=== PATIENT | female | born 1930 | race Caucasian/White ===

== ENCOUNTER 2019-12-12 12:16 | Inpatient (IN) | payer MEDICARE ==
[~2019-12-12] VITALS: Ht 160 cm; Wt 74.4 kg
[2019-12-12] MEDS ORDERED: SINGULAIR10 MG ORAL (12:30)
[2019-12-12] MEDS ORDERED: PRILOSEC OTC20 MG ORAL (12:30)
[2019-12-12] MEDS ORDERED: LEVOTHYROXINE75 MCG ORAL (12:30)
[2019-12-12] MEDS ORDERED: SYMBICORT 16010.2 G1 IH (12:30)
[2019-12-12] MEDS ORDERED: NEURONTIN300 MG ORAL (12:30)
[2019-12-12] MEDS ORDERED: MIRTAZAPINE15 MG ORAL (12:30)
[2019-12-12] MEDS ORDERED: MELATONIN5 M5 ORAL (12:30)
[2019-12-12] MEDS ORDERED: COLACE100 MG ORAL (12:30)
[2019-12-12] MEDS ORDERED: LEXAPRO20 MG ORAL (12:30)
[2019-12-12] MEDS ORDERED: DUONEB 0.5-3(2.53 ML HHN (12:30)
[2019-12-12] MEDS ORDERED: Ipratropium 0.02% Inh Soln 2.5ml UD ONE ×2 (12:37→13:23)
[2019-12-12] MEDS ORDERED: Albuterol ud Inhalation ONE (12:37)
[2019-12-12 12:39] LABS: HEMATOCRIT 36.6 % (37.0-47.0); HEMOGLOBIN 12.1 G/DL (12.0-16.0); MEAN CORPUSCULAR VOLUME 96 FL (80-99); PLATELET COUNT 330 K/UL (150-450); RED CELL DISTRIBUTION WIDTH 11.9 % (11.6-14.8)
[2019-12-12 12:44] LABS: WHITE BLOOD COUNT 32.6 K/UL (4.8-10.8)
[2019-12-12] MEDS ORDERED: Solu-MEDROL 125mg Inj IVP ONE (12:45)
[2019-12-12] MEDS ORDERED: Albuterol ud Inhalation HHN ONE (12:45)
[2019-12-12] MEDS ORDERED: Ipratropium 0.02% Inh Soln 2.5ml UD HHN ONE (12:45)
[2019-12-12 12:48] LABS: ANION GAP 12 mmol/L (5-15); BLOOD UREA NITROGEN 32 mg/dL (7-18); CALCIUM 9.4 MG/DL (8.5-10.1); CARBON DIOXIDE 21 MMOL/L (21-32); CHLORIDE 106 MMOL/L (98-107); CREATININE 1.5 MG/DL (0.55-1.30); POTASSIUM 5.2 MMOL/L (3.5-5.1); SODIUM 139 MMOL/L (136-145)
[2019-12-12 13:00] LABS: ALANINE AMINOTRANSFERASE 41 U/L (12-78); ALBUMIN 3.3 G/DL (3.4-5.0); ALBUMIN/GLOBULIN RATIO 0.8 (1.0-2.7); ALKALINE PHOSPHATASE 135 U/L (46-116); ASPARTATE AMINO TRANSFERASE 20 U/L (15-37); BILIRUBIN,TOTAL 0.7 MG/DL (0.2-1.0); CKMB 1.6 NG/ML (0.0-3.6); CREATINE KINASE 80 U/L (26-308)
[2019-12-12] MEDS ORDERED: Levalbuterol Inh UD 1.25mg/0.5ml HHN ONE (13:15)
--- NOTE | 2019-12-12 13:18 | Emergency Room Report ---
History of Present Illness General Chief Complaint: Dyspnea/Respdistress Source: Patient (Carlos Lopez DO) Present Illness HPI Patient presents with complaints of shortness of breath Reports that she has an asthma exacerbation patient reports that she has had several of these over the past 1 year Denies any fevers denies any vomiting or diarrhea she has had increased cough Denies any chest pain denies any focal weakness Denies any recent travel denies any change in medications Patient has had some URI symptoms with mild cough and runny nose (Carlos Lopez DO) Allergies: Coded Allergies: ASPIRIN (Verified Allergy, Intermediate, 12/12/19) CODEINE (Verified Allergy, Intermediate, 12/12/19) EPINEPHRINE (Verified Allergy, Intermediate, 12/12/19) PENICILLINS (Verified Allergy, Unknown, 12/12/19) SULFA (SULFONAMIDE ANTIBIOTICS) (Verified Allergy, Unknown, 12/12/19) Patient History Past Medical History: see triage record Last Menstrual Period: na Reviewed Nursing Documentation: PMH: Agreed; PSxH: Agreed (Carlos Lopez DO) Review of Systems All Other Systems: negative except mentioned in HPI (PedroCarlos van DO) Physical Exam Vital Signs Date Time Temp Pulse Resp B/P (MAP) Pulse Ox O2 Delivery O2 Flow Rate FiO2 12/12/19 12:11 97.5 91 28 112/52 (72) 95 Simple Mask 10.0 12/12/19 12:41 28 Sp02 EP Interpretation: reviewed, normal General Appearance: mild distress - Appears short of breath and tachypneic Head: normocephalic, atraumatic Eyes: bilateral eye PERRL, bilateral eye EOMI ENT: hearing grossly normal, EOM grossly intact, dry mucus membranes Neck: supple Respiratory: other - Patient appears tachypneic, diffuse wheezing and crackles bilaterally, no obvious initial retractions however patient does appear in mild distress Cardiovascular #1: tachycardia Gastrointestinal: non tender, soft Genitourinary: no CVA tenderness Musculoskeletal: normal inspection Neurologic: alert, oriented x3 Skin: no rash Lymphatic: no adenopathy (Carlos Lopez DO) Procedures Critical Care Time Critical Care Time 50 minutes for initial critical presentation, respiratory distress concerning for respiratory failure not including any procedural time (Carlos Lopez DO) Medical Decision Making Diagnostic Impression: Primary Impression: Respiratory distress Additional Impressions: Dyspnea Qualified Codes: R06.03 - Acute respiratory distress Asthma exacerbation Qualified Codes: J45.51 - Severe persistent asthma with (acute) exacerbation Leukocytosis Qualified Codes: D72.828 - Other elevated white blood cell count ER Course Patient is a fairly complex patient with multiple differential to consideration including but not limited to cardiac cardiopulmonary and vascular emergencies Patient's tachypneic with wheezing bilaterally Repeat breathing treatments are initiated patient also started on steroids and Magnesium sulfate given the severity of presentation Patient's white blood cell count is significantly elevated patient is likely on chronic steroids contributing to this however There is increased concern regarding infectious process Patient has further antibiotics and hydration initiated x-ray shows nonspecific markings bilaterally Tortuous aorta as well And admitted for higher level of care admission Labs Test 12/12/19 12:25 12/12/19 13:04 12/12/19 13:15 White Blood Count 32.6 K/UL (4.8-10.8) Red Blood Count 3.80 M/UL (4.20-5.40) Hemoglobin 12.1 G/DL (12.0-16.0) Hematocrit 36.6 % (37.0-47.0) Mean Corpuscular Volume 96 FL (80-99) Mean Corpuscular Hemoglobin 31.8 PG (27.0-31.0) Mean Corpuscular Hemoglobin Concent 33.0 G/DL (32.0-36.0) Red Cell Distribution Width 11.9 % (11.6-14.8) Platelet Count 330 K/UL (150-450) Mean Platelet Volume 6.5 FL (6.5-10.1) Neutrophils (%) (Auto) % (45.0-75.0) Lymphocytes (%) (Auto) % (20.0-45.0) Monocytes (%) (Auto) % (1.0-10.0) Eosinophils (%) (Auto) % (0.0-3.0) Basophils (%) (Auto) % (0.0-2.0) Sodium Level 139 MMOL/L (136-145) Potassium Level 5.2 MMOL/L (3.5-5.1) Chloride Level 106 MMOL/L (98-107) Carbon Dioxide Level 21 MMOL/L (21-32) Anion Gap 12 mmol/L (5-15) Blood Urea Nitrogen 32 mg/dL (7-18) Creatinine 1.5 MG/DL (0.55-1.30) Estimat Glomerular Filtration Rate mL/min (>60) Glucose Level 137 MG/DL (74-106) Lactic Acid Level 1.80 mmol/L (0.4-2.0) Calcium Level 9.4 MG/DL (8.5-10.1) Total Bilirubin 0.7 MG/DL (0.2-1.0) Aspartate Amino Transf (AST/SGOT) 20 U/L (15-37) Alanine Aminotransferase (ALT/SGPT) 41 U/L (12-78) Alkaline Phosphatase 135 U/L (46-116) Total Creatine Kinase 80 U/L (26-308) Creatine Kinase MB 1.6 NG/ML (0.0-3.6) Creatine Kinase MB Relative Index 2.0 Troponin I 0.000 ng/mL (0.000-0.056) Pro-B-Type Natriuretic Peptide 660 pg/mL (0-125) Total Protein 7.2 G/DL (6.4-8.2) Albumin 3.3 G/DL (3.4-5.0) Globulin 3.9 g/dL Albumin/Globulin Ratio 0.8 (1.0-2.7) Lipase 114 U/L (73-393) Arterial Blood pH 7.392 (7.350-7.450) Arterial Blood Partial Pressure CO2 31.8 mmHg (35.0-45.0) Arterial Blood Partial Pressure O2 88.9 mmHg (75.0-100.0) Arterial Blood HCO3 18.9 mmol/L (22.0-26.0) Arterial Blood Oxygen Saturation 96.6 % (95-100) Arterial Blood Base Excess -5.1 (-2-2) Ashvin Test Positive (Carlos Lopez DO) ER Course Please see above note. Patient still with respiratory distress. BiPAP and CO2 monitoring ordered. 1510 - improved O2 and resps on BiPAP. Still wheezing. Albuterol continue. Improved on BiPAP. Transfer to stepdown unit. Discussed with son. (Jomar Wray MD) ER Course Patient with incidental finding Procedure: XRAY Chest 1v Indication: Dyspnea Comparison: None A single view chest radiograph was obtained. Findings: There is an abnormal pleural-based density lateral right upper lung field. Further evaluation with CT is suggested. The heart is enlarged. The aorta is tortuous and ectatic. The interstitium of the lung is mildly prominent. The bones are diffusely osteopenic. IMPRESSION: Nodular appearing infiltrate versus mass in the peripheral right upper lobe. Further evaluation with CT is suggested. At the least, follow-up chest x-ray is recommended. Findings conveyed to the emergency department at 12:40 PM 12/13/2019 Dictated By: Navin Irby MD Electronically Signed By: Navin Irby MD Signed Date/Time 12/13/19 2974 CC: Carlos Lopez DO Made Dr. Davis aware who is taking care of patient under [facility]. (Willy Hedrick MD) EKG Diagnostic Results Rate: tachycardiac Rhythm: other ST Segments: no acute changes (Carlos Lopez DO) Rhythm Strip Diag. Results EP Interpretation: yes Rate: 90 Rhythm: NSR, no PVC's, no ectopy (Carlos Lopez DO) Rhythm: no PVC's, no ectopy, other - ST (Jomar Wray MD) Chest X-Ray Diagnostic Results Chest X-Ray Diagnostic Results : Chest X-Ray Ordered: Yes # of Views/Limited/Complete: 1 View Indication: Shortness of Breath Interpretation: no effusion, no pneumothorax, other - Bilateral patchy markings right middle lobe question lateral wedge bilateral lower lobe atelectasis tortuous aorta Impression: Other - As above Electronically Signed by: Carlos Lopez DO (Carlos Lopez DO) Last Vital Signs Date Time Temp Pulse Resp B/P (MAP) Pulse Ox O2 Delivery O2 Flow Rate FiO2 12/12/19 12:41 101 23 98 Nasal Cannula 2.0 28 98 28 93 12/12/19 12:11 97.5 112/52 (72) Status: improved (Carlos Lopez DO) Last Vital Signs Date Time Temp Pulse Resp B/P (MAP) Pulse Ox O2 Delivery O2 Flow Rate FiO2 12/13/19 00:00 Venturi Mask 6.0 12/13/19 00:00 97.7 95 24 121/61 (81) 95 12/12/19 23:07 35 Status: improved (Jomar Wray MD) Disposition: ADMITTED INPATIENT Condition: Critical Referrals: Sandra Lundberg MD (PCP) Carlos Lopez DO Dec 12, 2019 13:18 Jomar Wray MD Dec 12, 2019 14:55 Willy Hedrick MD Dec 13, 2019 15:02
[2019-12-12 13:38] VITALS: BP 132/72
[2019-12-12 13:54] LABS: APPEARANCE,URINE CLEAR; BILIRUBIN, URINE NEGATIVE (NEGATIVE); GLUCOSE, URINE (UA) NEGATIVE (NEGATIVE); KETONES,URINE NEGATIVE (NEGATIVE); LEUKOCYTE ESTERASE ,URINE NEGATIVE (NEGATIVE); NITRITE,URINE NEGATIVE (NEGATIVE); PH,URINE 5 (4.5-8.0); PROTEIN,URINE NEGATIVE (NEGATIVE); UROBILINOGEN,URINE NORMAL MG/DL (0.0-1.0)
[2019-12-12] MEDS ORDERED: cefTRIAXone 1 GM in NS 55 ML IVPB ONE (14:00)
[2019-12-12] MEDS ORDERED: Azithromycin 500 MG in NS 275 ML IV ONE (14:00)
[2019-12-12 14:10] LABS: COLOR,URINE YELLOW
[2019-12-12] MEDS: Albuterol ud Inhalation HHN SCH ×6 (14:14→17:18)
[2019-12-12] MEDS: Ipratropium 0.02% Inh Soln 2.5ml UD HHN SCH ×2 (14:14→14:15)
[2019-12-12] MEDS ORDERED: Miralax 17gm pkt ORAL PRN (14:30)
[2019-12-12] MEDS ORDERED: Acetaminophen 650 MG SUPP RECTAL PRN ×2 (14:30)
[2019-12-12] MEDS ORDERED: Milk of Magnesia 30ml Ud ORAL PRN (14:30)
[2019-12-12] MEDS ORDERED: Nitroglycerin Subl 0.4mg tab SL PRN (14:30)
[2019-12-12] MEDS: Albuterol/Ipratropium 3ml neb HHN SCH ×3 (15:00→22:42)
[2019-12-12 16:44] VITALS: BP 112/73
[2019-12-12] MEDS ORDERED: D5 1/2NS 1,000 ML IV SCH (17:15)
[2019-12-12] MEDS ORDERED: NORCO 5-325 TA1 EACH ORAL (17:55)
[2019-12-12] MEDS ORDERED: TUMS200 M1 PO (17:55)
[2019-12-12] MEDS ORDERED: GUAIFENESIN400 MG PO (17:55)
[2019-12-12] MEDS: D5 1/2NS 1,000 ML IV SCH (18:54)
[2019-12-12 20:00] VITALS: BP 116/65
[2019-12-12] MEDS: Heparin 5000 units/ml inj SUBQ SCH (20:50)
[2019-12-12] MEDS ORDERED: Docusate 100mg cap ORAL SCH (21:00)
--- NOTE | 2019-12-12 22:52 | History and Physical ---
History of Present Illness General Date patient seen: Dec 12, 2019 Reason for Hospitalization: Dyspnea/Respdistress Present Illness HPI Patient presents with complaints of shortness of breath Reports that she has an asthma exacerbation patient reports that she has had several of these over the past 1 year Denies any fevers denies any vomiting or diarrhea she has had increased cough Denies any chest pain denies any focal weakness Denies any recent travel denies any change in medications Patient has had some URI symptoms with mild cough and runny nose [place] records reviewed; patient's outpatient riveting machine operator is Dr. Puente, who does not round at [facility] and was notified. Patient was at [facility] and has had frequent falls that have exacerbated her Asthma. She is not wheezing on exam but states while in the ED she had significant wheezing that has since improved after breathing treatments. She denies fevers, chills, cp, new allergens, new pets, change in environment. Allergies: Coded Allergies: ASPIRIN (Verified Allergy, Intermediate, 12/12/19) CODEINE (Verified Allergy, Intermediate, 12/12/19) EPINEPHRINE (Verified Allergy, Intermediate, 12/12/19) PENICILLINS (Verified Allergy, Unknown, 12/12/19) SULFA (SULFONAMIDE ANTIBIOTICS) (Verified Allergy, Unknown, 12/12/19) Medication History Scheduled Calcium Carbonate (Tums), 200 MG PO PRN, (Reported) Docusate Sodium* (Colace*), 100 MG ORAL DAILY, (Reported) Escitalopram Oxalate* (Lexapro*), 20 MG ORAL DAILY, (Reported) Gabapentin (Neurontin), 300 MG ORAL BEDTIME, (Reported) Guaifenesin (Guaifenesin), 600 MG PO BID, (Reported) Ipratropium/Albuterol Sulfate (DuoNeb 0.5-3(2.5)mg/3ml), 3 ML HHN Q6HR, ( Reported) Levothyroxine Sodium* (Levothyroxine Sodium*), 75 MCG ORAL DAILY, (Reported) Mirtazapine* (Remeron*), 7.5 MG ORAL BEDTIME, (Reported) Montelukast Sodium* (Singulair*), 10 MG ORAL DAILY, (Reported) Omeprazole Magnesium (Prilosec Otc), 20 MG ORAL DAILY, (Reported) Scheduled PRN Hydrocodone Bit/Acetaminophen 5-325* ([place] 5-325*), 1 TAB ORAL Q4H PRN for For Pain, (Reported) Melatonin (Melatonin), 5 MG ORAL BEDTIME PRN for Insomnia, (Reported) Miscellaneous Medications Budesonide/Formoterol Fumarate (Symbicort 160-4.5 Mcg Inhaler), 1 PUFF IH, ( Reported) Patient History Healthcare decision maker Resuscitation status Full Code Advanced Directive on File Review of Systems All Other Systems: negative except mentioned in HPI Physical Exam General Appearance: WD/WN, alert, mild distress HEENT: atraumatic, anicteric, EOMI Neck: normal alignment, supple Respiratory/Chest: lungs clear, normal breath sounds, accessory muscle use, crackles/rales Cardiovascular/Chest: normal peripheral pulses, normal rate, regular rhythm Abdomen: non tender, soft, no organomegaly Extremities: non-tender, no edema, no cyanosis Neurologic: nutritional health coach II-XII grossly normal, no motor/sensory deficits, oriented x 3 , responsive Musculoskeletal: atrophy Last 24 Hour Vital Signs Date Time Temp Pulse Resp B/P (MAP) Pulse Ox O2 Delivery O2 Flow Rate FiO2 12/12/19 20:00 97.7 105 27 116/65 (82) 95 12/12/19 20:00 106 12/12/19 20:00 35 12/12/19 18:47 105 24 98 Facial 35 100 32 99 Bi-Pap 35 12/12/19 17:15 105 24 99 Facial 35 100 27 100 Bi-Pap 35 12/12/19 16:59 Bi-pap 12/12/19 16:44 96.4 109 27 112/73 (86) 97 12/12/19 16:31 106 24 97 Facial 35 103 28 99 Bi-Pap 35 12/12/19 16:20 97.9 89 24 132/72 98 2.0 35 12/12/19 15:17 112 24 98 Bi-Pap 35 12/12/19 15:05 116 22 98 Facial 35 12/12/19 15:04 116 22 98 12/12/19 14:11 108 24 91 Nasal Cannula 2.0 28 12/12/19 13:38 97.5 111 32 132/72 99 Nasal Cannula 2.0 28 12/12/19 13:25 102 21 99 Nasal Cannula 2.0 28 106 17 94 12/12/19 12:41 101 23 98 Nasal Cannula 2.0 28 98 28 93 12/12/19 12:33 91 28 Nasal Cannula 2.0 12/12/19 12:11 97.5 91 28 112/52 (72) 95 Simple Mask 10.0 Laboratory Tests Test 12/12/19 12:25 12/12/19 13:04 12/12/19 13:15 12/12/19 15:20 White Blood Count 32.6 K/UL (4.8-10.8) *H Red Blood Count 3.80 M/UL (4.20-5.40) L Hemoglobin 12.1 G/DL (12.0-16.0) Hematocrit 36.6 % (37.0-47.0) L Mean Corpuscular Volume 96 FL (80-99) Mean Corpuscular Hemoglobin 31.8 PG (27.0-31.0) H Mean Corpuscular Hemoglobin Concent 33.0 G/DL (32.0-36.0) Red Cell Distribution Width 11.9 % (11.6-14.8) Platelet Count 330 K/UL (150-450) Mean Platelet Volume 6.5 FL (6.5-10.1) Neutrophils (%) (Auto) % (45.0-75.0) Lymphocytes (%) (Auto) % (20.0-45.0) Monocytes (%) (Auto) % (1.0-10.0) Eosinophils (%) (Auto) % (0.0-3.0) Basophils (%) (Auto) % (0.0-2.0) Differential Total Cells Counted 100 Neutrophils % (Manual) 71 % (45-75) Lymphocytes % (Manual) 20 % (20-45) Monocytes % (Manual) 9 % (1-10) Eosinophils % (Manual) 0 % (0-3) Basophils % (Manual) 0 % (0-2) Band Neutrophils 0 % (0-8) Platelet Estimate Adequate Platelet Morphology Normal Sodium Level 139 MMOL/L (136-145) Potassium Level 5.2 MMOL/L (3.5-5.1) H Chloride Level 106 MMOL/L (98-107) Carbon Dioxide Level 21 MMOL/L (21-32) Anion Gap 12 mmol/L (5-15) Blood Urea Nitrogen 32 mg/dL (7-18) H Creatinine 1.5 MG/DL (0.55-1.30) H Estimat Glomerular Filtration Rate mL/min (>60) Glucose Level 137 MG/DL (74-106) H Lactic Acid Level 1.80 mmol/L (0.4-2.0) Calcium Level 9.4 MG/DL (8.5-10.1) Total Bilirubin 0.7 MG/DL (0.2-1.0) Aspartate Amino Transf (AST/SGOT) 20 U/L (15-37) Alanine Aminotransferase (ALT/SGPT) 41 U/L (12-78) Alkaline Phosphatase 135 U/L (46-116) H Total Creatine Kinase 80 U/L (26-308) Creatine Kinase MB 1.6 NG/ML (0.0-3.6) Creatine Kinase MB Relative Index 2.0 Troponin I 0.000 ng/mL (0.000-0.056) 0.000 ng/mL (0.000-0.056) Pro-B-Type Natriuretic Peptide 660 pg/mL (0-125) H 770 pg/mL (0-125) H Total Protein 7.2 G/DL (6.4-8.2) Albumin 3.3 G/DL (3.4-5.0) L Globulin 3.9 g/dL Albumin/Globulin Ratio 0.8 (1.0-2.7) L Lipase 114 U/L (73-393) Arterial Blood pH 7.392 (7.350-7.450) Arterial Blood Partial Pressure CO2 31.8 mmHg (35.0-45.0) L Arterial Blood Partial Pressure O2 88.9 mmHg (75.0-100.0) Arterial Blood HCO3 18.9 mmol/L (22.0-26.0) L Arterial Blood Oxygen Saturation 96.6 % (95-100) Arterial Blood Base Excess -5.1 (-2-2) L Ashvin Test Positive Urine Color Yellow Urine Appearance Clear Urine pH 5 (4.5-8.0) Urine Specific [place] 1.015 (1.005-1.035) Urine Protein Negative (NEGATIVE) Urine Glucose (UA) Negative (NEGATIVE) Urine Ketones Negative (NEGATIVE) Urine Blood Negative (NEGATIVE) Urine Nitrite Negative (NEGATIVE) Urine Bilirubin Negative (NEGATIVE) Urine Urobilinogen Normal MG/DL (0.0-1.0) Urine Leukocyte Esterase Negative (NEGATIVE) Test 1/26/20 21:25 Troponin I Pending Microbiology Date/Time Source Procedure Growth Status 12/12/19 14:20 Rectum Received Height (Feet): 5 Height (Inches): 3.00 Weight (Pounds): 177 Medications Current Medications Medications (Trade) Dose Ordered Sig/Hiram Route PRN Reason Start Time Stop Time Status Last Admin Dose Admin Acetaminophen (Tylenol) 650 mg Q4H PRN ORAL Mild Pain (Pain Scale 1-3) 12/12/19 14:30 01/11/20 14:29 Acetaminophen (Tylenol) 650 mg Q4H PRN ORAL fever (T>100.4) 12/12/19 14:30 01/11/20 14:29 Acetaminophen (Tylenol) 650 mg Q4H PRN RECTAL Mild Pain (Pain Scale 1-3) 12/12/19 14:30 01/11/20 14:29 Acetaminophen (Tylenol) 650 mg Q4H PRN RECTAL fever (T>100.4) 12/12/19 14:30 01/11/20 14:29 Albuterol/ Ipratropium (Albuterol/ Ipratropium) 3 ml Q4HRT HHN 12/12/19 15:00 12/17/19 14:59 12/12/19 18:43 Azithromycin 500 mg/Sodium Chloride 275 ml @ 275 mls/hr Q24H IV 12/13/19 15:00 12/20/19 14:59 Bisacodyl (Dulcolax) 10 mg DAILYPRN PRN RECTAL Constipation 12/12/19 14:30 01/11/20 14:29 Ceftriaxone Sodium 1 gm/ Sodium Chloride 55 ml @ 110 mls/hr Q24H IVPB 12/13/19 14:00 12/20/19 13:59 Dextrose (Dextrose 50%) 25 ml Q30M PRN IV Hypoglycemia 12/12/19 14:30 01/11/20 14:29 Dextrose (Dextrose 50%) 50 ml Q30M PRN IV Hypoglycemia 12/12/19 14:30 01/11/20 14:29 Dextrose/Sodium Chloride 1,000 ml @ 50 mls/hr Q20H IV 12/12/19 18:45 01/11/20 18:44 12/12/19 18:54 Docusate Sodium (Colace) 100 mg EVERY 12 HOURS ORAL 12/12/19 21:00 01/11/20 20:59 12/12/19 20:49 Heparin Sodium (Porcine) (Heparin 5000 units/ml) 5,000 units EVERY 12 HOURS SUBQ 12/12/19 21:00 01/11/20 20:59 12/12/19 20:50 Magnesium Hydroxide (Mom) 30 ml HSPRN PRN ORAL Constipation 12/12/19 14:30 01/11/20 14:29 Nitroglycerin (Ntg) 0.4 mg Q5M PRN SL Prn Chest Pain 12/12/19 14:30 01/11/20 14:29 Ondansetron HCl (Zofran) 4 mg Q6H PRN IVP Nausea & Vomiting 12/12/19 14:30 01/11/20 14:29 Pantoprazole (Protonix) 40 mg DAILY ORAL 12/13/19 09:00 01/12/20 08:59 Polyethylene Glycol (Miralax) 17 gm DAILYPRN PRN ORAL Constipation 12/12/19 14:30 01/11/20 14:29 Prednisone (predniSONE) 60 mg DAILY ORAL 12/13/19 09:00 01/12/20 08:59 Assessment/Plan Diagnosis Hunter I: 89 yo F w PMH of Asthma and multiple asthma exacerbations over the past year, presents from [facility] for sob. # Acute on Chronic Asthma exacerbation - wean off bipap - ABG - steroids - IV abx: rocephin. azithro - Pulm consult, appreciate recs # Leukocytosis 2/2 PNA sepsis? - cxr - abx as above - f/u blood cultures - UA neg - mccarthy culture if temp >100.4 - IVF # CKD - ctm bmp - avoid nephrotoxic meds # Hyperkalemia - recheck after 2 L NS in the ED # DNR I spent 60 minutes on this case witih >50% dedicated to care coordination and counseling. Code status was discussed at bedside with patient who states she wishes to be DNR DNI and has written legal documents reflecting her wishes. 17 minutes spent in discussion regarding code status. Amy Price DO Dec 12, 2019 22:52
[2019-12-13] VITALS: BP 121/61
[2019-12-13] MEDS: Albuterol/Ipratropium 3ml neb HHN SCH ×6 (02:42→23:00)
[2019-12-13 04:00] VITALS: BP 127/72
[2019-12-13 05:00] LABS: HEMOGLOBIN 10.8 G/DL (12.0-16.0); MEAN CORPUSCULAR VOLUME 96 FL (80-99); PLATELET COUNT 278 K/UL (150-450); RED BLOOD COUNT 3.35 M/UL (4.20-5.40); RED CELL DISTRIBUTION WIDTH 11.8 % (11.6-14.8)
[2019-12-13 05:15] LABS: WHITE BLOOD COUNT 32.1 K/UL (4.8-10.8)
[2019-12-13 05:32] LABS: ANION GAP 9 mmol/L (5-15); BLOOD UREA NITROGEN 33 mg/dL (7-18); CALCIUM 9.1 MG/DL (8.5-10.1); CARBON DIOXIDE 21 MMOL/L (21-32); CHLORIDE 107 MMOL/L (98-107); CREATININE 1.4 MG/DL (0.55-1.30); SODIUM 137 MMOL/L (136-145)
[2019-12-13 08:00] VITALS: BP 147/85
--- NOTE | 2019-12-13 09:31 | General Progress Note ---
Assessment/Plan Problem List: (1) Sepsis ICD Codes: A41.9 - Sepsis, unspecified organism SNOMED: 18845617 (2) HCAP (healthcare-associated pneumonia) ICD Codes: J18.9 - Pneumonia, unspecified organism SNOMED: 519606296, 822119620 (3) Hypothyroidism ICD Codes: E03.9 - Hypothyroidism, unspecified SNOMED: 86767711 (4) Depression ICD Codes: F32.9 - Major depressive disorder, single episode, unspecified SNOMED: 29386725 (5) Leukocytosis ICD Codes: D72.829 - Elevated white blood cell count, unspecified SNOMED: 922512572, 789718112 Qualifiers: Qualified Codes: D72.828 - Other elevated white blood cell count (6) Asthma exacerbation ICD Codes: J45.901 - Unspecified asthma with (acute) exacerbation SNOMED: 386622525 Qualifiers: Qualified Codes: J45.51 - Severe persistent asthma with (acute) exacerbation Status: stable Assessment/Plan: 89 yo F w PMH of Asthma and multiple asthma exacerbations over the past year, presents from [facility] for sob. Found to have sepsis secondary to pneumonia. #Sepsis secondary to pneumonia, vs right uper lobe mass #Asthma exacerbation Rocephin, Azithro, add flagyl for anaerobic coverage follow up cultures CT chest for ?rul mass on cxr pulmonary consult Dr. Perez Po steroids, neb treatments, LABA/ICS, montelukast monitor white count, could be induced by steroids in combination with sepsis speech evaluation #hypothyroidism continue levothyroxine # CKD, ?stage - ctm bmp - avoid nephrotoxic meds # Hyperkalemia - recheck after 2 L NS in the ED, 5.2-->5 #Depression continue Lexapro VTE ppx: Heparin Gi ppx Code status: DNR PCP: Jeff Rodriguez mechanical assembly technician: Kahlil Wang I spent 40 minutes on this case with >50% dedicated to care coordination and counseling. Code status was discussed at bedside with patient who states she wishes to be DNR DNI and has written legal documents reflecting her wishes. 17 minutes spent in discussion regarding code status. Subjective Date patient seen: Dec 13, 2019 ROS Limited/Unobtainable: No Constitutional: Reports: weakness HEENT: Denies: no symptoms, eye pain, blurred vision, tearing, double vision, ear pain, ear discharge, nose pain, nose congestion, throat pain, throat swelling, mouth pain, mouth swelling, other Cardiovascular: Denies: no symptoms, chest pain, edema, irregular heart rate, lightheadedness, palpitations, syncope, other Respiratory: Reports: shortness of breath Gastrointestinal/Abdominal: Denies: no symptoms, abdomen distended, abdominal pain, black stools, tarry stools, blood in stool, constipated, diarrhea, difficulty swallowing, nausea, poor appetite, poor fluid intake, rectal bleeding , vomiting, other Genitourinary: Denies: no symptoms, burning, discharge, frequency, flank pain, hematuria, incontinence, pain, urgency, other Neurologic/Psychiatric: Denies: no symptoms, anxiety, depressed, emotional problems, headache, numbness, paresthesia, pre-existing deficit, seizure, tingling, tremors, weakness, other Endocrine: Denies: no symptoms, excessive sweating, flushing, intolerance to cold, intolerance to heat, increased hunger, increased thirst, increased urine, unexplained weight gain, unexplained weight loss, other Allergies: Coded Allergies: ASPIRIN (Verified Allergy, Intermediate, 12/12/19) CODEINE (Verified Allergy, Intermediate, 12/12/19) EPINEPHRINE (Verified Allergy, Intermediate, 12/12/19) PENICILLINS (Verified Allergy, Unknown, 12/12/19) SULFA (SULFONAMIDE ANTIBIOTICS) (Verified Allergy, Unknown, 12/12/19) Objective Last 24 Hour Vital Signs Date Time Temp Pulse Resp B/P (MAP) Pulse Ox O2 Delivery O2 Flow Rate FiO2 12/13/19 08:00 6.0 35 12/13/19 08:00 97.9 88 22 147/85 (105) 97 12/13/19 08:00 Venturi Mask 6.0 12/13/19 07:20 89 23 96 Venturi Mask 6.0 35 90 25 96 12/13/19 07:20 96 Venturi Mask 6.0 35 12/13/19 04:00 97.2 90 24 127/72 (90) 97 12/13/19 04:00 Venturi Mask 6.0 12/13/19 04:00 6.0 35 12/13/19 04:00 88 12/13/19 02:43 89 21 96 Venturi Mask 6.0 35 86 23 94 12/13/19 00:00 6.0 35 12/13/19 00:00 Venturi Mask 6.0 12/13/19 00:00 97.7 95 24 121/61 (81) 95 12/13/19 00:00 92 12/12/19 23:07 94 Venturi Mask 6.0 35 12/12/19 20:00 97.7 105 27 116/65 (82) 95 12/12/19 20:00 106 12/12/19 20:00 Bi-pap 12/12/19 20:00 35 12/12/19 18:47 105 24 98 Facial 35 100 32 99 Bi-Pap 35 12/12/19 17:15 105 24 99 Facial 35 100 27 100 Bi-Pap 35 12/12/19 16:59 Bi-pap 12/12/19 16:44 96.4 109 27 112/73 (86) 97 12/12/19 16:31 106 24 97 Facial 35 103 28 99 Bi-Pap 35 12/12/19 16:20 97.9 89 24 132/72 98 2.0 35 12/12/19 15:17 112 24 98 Bi-Pap 35 12/12/19 15:05 116 22 98 Facial 35 12/12/19 15:04 116 22 98 12/12/19 14:11 108 24 91 Nasal Cannula 2.0 28 12/12/19 13:38 97.5 111 32 132/72 99 Nasal Cannula 2.0 28 12/12/19 13:25 102 21 99 Nasal Cannula 2.0 28 106 17 94 12/12/19 12:41 101 23 98 Nasal Cannula 2.0 28 98 28 93 12/12/19 12:33 91 28 Nasal Cannula 2.0 12/12/19 12:11 97.5 91 28 112/52 (72) 95 Simple Mask 10.0 Intake and Output 12/12/19 12/13/19 19:00 07:00 Intake Total 591.667 ml 600 ml Output Total 540 ml Balance 51.667 ml 600 ml Intake Oral 0 ml IV Total 591.667 ml 600 ml Output Urine Total 540 ml # Voids 4 # Bowel Movements 1 4 Laboratory Tests 12/12/19 12:25: White Blood Count 32.6*H, Red Blood Count 3.80L, Hemoglobin 12.1, Hematocrit 36.6L, Mean Corpuscular Volume 96, Mean Corpuscular Hemoglobin 31.8H, Mean Corpuscular Hemoglobin Concent 33.0, Red Cell Distribution Width 11.9, Platelet Count 330, Mean Platelet Volume 6.5, Neutrophils (%) (Auto) , Lymphocytes (%) ( Auto) , Monocytes (%) (Auto) , Eosinophils (%) (Auto) , Basophils (%) (Auto) , Differential Total Cells Counted 100, Neutrophils % (Manual) 71, Lymphocytes % ( Manual) 20, Monocytes % (Manual) 9, Eosinophils % (Manual) 0, Basophils % ( Manual) 0, Band Neutrophils 0, Platelet Estimate Adequate, Platelet Morphology Normal, Sodium Level 139, Potassium Level 5.2H, Chloride Level 106, Carbon Dioxide Level 21, Anion Gap 12, Blood Urea Nitrogen 32H, Creatinine 1.5H, Estimat Glomerular Filtration Rate , Glucose Level 137H, Lactic Acid Level 1.80 , Calcium Level 9.4, Total Bilirubin 0.7, Aspartate Amino Transf (AST/SGOT) 20, Alanine Aminotransferase (ALT/SGPT) 41, Alkaline Phosphatase 135H, Total Creatine Kinase 80, Creatine Kinase MB 1.6, Creatine Kinase MB Relative Index 2.0, Troponin I 0.000, Pro-B-Type Natriuretic Peptide 660H, Total Protein 7.2, Albumin 3.3L, Globulin 3.9, Albumin/Globulin Ratio 0.8L, Lipase 114 12/12/19 13:04: Arterial Blood pH 7.392, Arterial Blood Partial Pressure CO2 31.8L, Arterial Blood Partial Pressure O2 88.9, Arterial Blood HCO3 18.9L, Arterial Blood Oxygen Saturation 96.6, Arterial Blood Base Excess -5.1L, Ashvin Test Positive 12/12/19 13:15: Urine Color Yellow, Urine Appearance Clear, Urine pH 5, Urine Specific [place] 1.015, Urine Protein Negative, Urine Glucose (UA) Negative, Urine Ketones Negative, Urine Blood Negative, Urine Nitrite Negative, Urine Bilirubin Negative , Urine Urobilinogen Normal, Urine Leukocyte Esterase Negative 12/12/19 15:20: Troponin I 0.000, Pro-B-Type Natriuretic Peptide 770H 12/12/19 21:25: Troponin I 0.000 12/13/19 03:25: Troponin I 0.000, White Blood Count 32.1*H, Red Blood Count 3.35L, Hemoglobin 10.8L, Hematocrit 32.0L, Mean Corpuscular Volume 96, Mean Corpuscular Hemoglobin 32.2H, Mean Corpuscular Hemoglobin Concent 33.7, Red Cell Distribution Width 11.8, Platelet Count 278, Mean Platelet Volume 6.5, Neutrophils (%) (Auto) , Lymphocytes (%) (Auto) , Monocytes (%) (Auto) , Eosinophils (%) (Auto) , Basophils (%) (Auto) , Differential Total Cells Counted 100, Neutrophils % (Manual) 87H, Lymphocytes % (Manual) 8L, Monocytes % (Manual) 4, Eosinophils % (Manual) 0, Basophils % (Manual) 0, Band Neutrophils 1 , Platelet Estimate Adequate, Platelet Morphology Normal, Hypochromasia 1+, Anisocytosis 1+, D-Dimer 1.09H, Sodium Level 137, Potassium Level 5.0, Chloride Level 107, Carbon Dioxide Level 21, Anion Gap 9, Blood Urea Nitrogen 33H, Creatinine 1.4H, Estimat Glomerular Filtration Rate , Glucose Level 158H, Calcium Level 9.1, Thyroid Stimulating Hormone (TSH) 0.189L 12/13/19 09:07: Arterial Blood pH 7.409, Arterial Blood Partial Pressure CO2 32.7L, Arterial Blood Partial Pressure O2 76.8, Arterial Blood HCO3 20.2L, Arterial Blood Oxygen Saturation 95.4, Arterial Blood Base Excess -3.7L, Ashvin Test Positive Height (Feet): 5 Height (Inches): 3.00 Weight (Pounds): 177 Objective General Appearance: WD/WN, alert, mild distress HEENT: atraumatic, anicteric, EOMI Neck: normal alignment, supple Respiratory/Chest: lungs clear, normal breath sounds, accessory muscle use, crackles/rales Cardiovascular/Chest: normal peripheral pulses, normal rate, regular rhythm Abdomen: non tender, soft, no organomegaly Extremities: non-tender, no edema, no cyanosis Neurologic: television cameraman II-XII grossly normal, no motor/sensory deficits, oriented x 3 , responsive Musculoskeletal: atrophy Nash Davis M.D. Dec 13, 2019 09:31
[2019-12-13] MEDS: Docusate 100mg cap ORAL SCH (09:37)
[2019-12-13] MEDS: Heparin 5000 units/ml inj SUBQ SCH ×2 (09:39→20:31)
[2019-12-13] MEDS: Montelukast 10mg tablet ORAL SCH (10:53)
[2019-12-13 12:00] VITALS: BP 125/63
--- NOTE | 2019-12-13 13:38 | Diagnostic Imaging Report ---
Indication: Dyspnea Comparison: None A single view chest radiograph was obtained. Findings: There is an abnormal pleural-based density lateral right upper lung field. Further evaluation with CT is suggested. The heart is enlarged. The aorta is tortuous and ectatic. The interstitium of the lung is mildly prominent. The bones are diffusely osteopenic. IMPRESSION: Nodular appearing infiltrate versus mass in the peripheral right upper lobe. Further evaluation with CT is suggested. At the least, follow-up chest x-ray is recommended. Findings conveyed to the emergency department at 12:40 PM 12/13/2019
--- NOTE | 2019-12-13 13:50 | Infectious Diseases Prog Note ---
Assessment/Plan Assessment/Plan Full consult dictated: A) 1) sepsis, cap, leukocytosis 2) pmh noted, hx steroids 3) allergies - asa, pcn P) 1) rocephin, flagyl, azithromycin 2) check cultures, labs and chest x-ray 3) monitor labs 4) thank you Subjective Allergies: Coded Allergies: ASPIRIN (Verified Allergy, Intermediate, 12/12/19) CODEINE (Verified Allergy, Intermediate, 12/12/19) EPINEPHRINE (Verified Allergy, Intermediate, 12/12/19) PENICILLINS (Verified Allergy, Unknown, 12/12/19) SULFA (SULFONAMIDE ANTIBIOTICS) (Verified Allergy, Unknown, 12/12/19) Objective Vital Signs Last 24 Hour Vital Signs Date Time Temp Pulse Resp B/P (MAP) Pulse Ox O2 Delivery O2 Flow Rate FiO2 12/13/19 12:00 96.6 86 20 125/63 (83) 96 12/13/19 12:00 6.0 35 12/13/19 12:00 Venturi Mask 6.0 12/13/19 08:00 6.0 35 12/13/19 08:00 97.9 88 22 147/85 (105) 97 12/13/19 08:00 Venturi Mask 6.0 12/13/19 08:00 90 12/13/19 07:20 89 23 96 Venturi Mask 6.0 35 90 25 96 12/13/19 07:20 96 Venturi Mask 6.0 35 12/13/19 04:00 97.2 90 24 127/72 (90) 97 12/13/19 04:00 Venturi Mask 6.0 12/13/19 04:00 6.0 35 12/13/19 04:00 88 12/13/19 02:43 89 21 96 Venturi Mask 6.0 35 86 23 94 12/13/19 00:00 6.0 35 12/13/19 00:00 Venturi Mask 6.0 12/13/19 00:00 97.7 95 24 121/61 (81) 95 12/13/19 00:00 92 12/12/19 23:07 94 Venturi Mask 6.0 35 12/12/19 20:00 97.7 105 27 116/65 (82) 95 12/12/19 20:00 106 12/12/19 20:00 Bi-pap 12/12/19 20:00 35 1/26/20 18:47 105 24 98 Facial 35 100 32 99 Bi-Pap 35 12/12/19 17:15 105 24 99 Facial 35 100 27 100 Bi-Pap 35 12/12/19 16:59 Bi-pap 12/12/19 16:44 96.4 109 27 112/73 (86) 97 12/12/19 16:31 106 24 97 Facial 35 103 28 99 Bi-Pap 35 12/12/19 16:20 97.9 89 24 132/72 98 2.0 35 12/12/19 15:17 112 24 98 Bi-Pap 35 12/12/19 15:05 116 22 98 Facial 35 12/12/19 15:04 116 22 98 12/12/19 14:11 108 24 91 Nasal Cannula 2.0 28 Height (Feet): 5 Height (Inches): 3.00 Weight (Pounds): 177 Microbiology Date/Time Source Procedure Growth Status 12/12/19 14:20 Rectum Received Laboratory Tests Test 12/12/19 15:20 12/12/19 21:25 12/13/19 03:25 12/13/19 09:07 Troponin I 0.000 ng/mL (0.000-0.056) 0.000 ng/mL (0.000-0.056) 0.000 ng/mL (0.000-0.056) Pro-B-Type Natriuretic Peptide 770 pg/mL (0-125) H White Blood Count 32.1 K/UL (4.8-10.8) *H Red Blood Count 3.35 M/UL (4.20-5.40) L Hemoglobin 10.8 G/DL (12.0-16.0) L Hematocrit 32.0 % (37.0-47.0) L Mean Corpuscular Volume 96 FL (80-99) Mean Corpuscular Hemoglobin 32.2 PG (27.0-31.0) H Mean Corpuscular Hemoglobin Concent 33.7 G/DL (32.0-36.0) Red Cell Distribution Width 11.8 % (11.6-14.8) Platelet Count 278 K/UL (150-450) Mean Platelet Volume 6.5 FL (6.5-10.1) Neutrophils (%) (Auto) % (45.0-75.0) Lymphocytes (%) (Auto) % (20.0-45.0) Monocytes (%) (Auto) % (1.0-10.0) Eosinophils (%) (Auto) % (0.0-3.0) Basophils (%) (Auto) % (0.0-2.0) Differential Total Cells Counted 100 Neutrophils % (Manual) 87 % (45-75) H Lymphocytes % (Manual) 8 % (20-45) L Monocytes % (Manual) 4 % (1-10) Eosinophils % (Manual) 0 % (0-3) Basophils % (Manual) 0 % (0-2) Band Neutrophils 1 % (0-8) Platelet Estimate Adequate Platelet Morphology Normal Hypochromasia 1+ Anisocytosis 1+ D-Dimer 1.09 mg/L FEU (0.00-0.49) H Sodium Level 137 MMOL/L (136-145) Potassium Level 5.0 MMOL/L (3.5-5.1) Chloride Level 107 MMOL/L (98-107) Carbon Dioxide Level 21 MMOL/L (21-32) Anion Gap 9 mmol/L (5-15) Blood Urea Nitrogen 33 mg/dL (7-18) H Creatinine 1.4 MG/DL (0.55-1.30) H Estimat Glomerular Filtration Rate mL/min (>60) Glucose Level 158 MG/DL (74-106) H Calcium Level 9.1 MG/DL (8.5-10.1) Thyroid Stimulating Hormone (TSH) 0.189 uiU/mL (0.358-3.740) Arterial Blood pH 7.409 (7.350-7.450) Arterial Blood Partial Pressure CO2 32.7 mmHg (35.0-45.0) L Arterial Blood Partial Pressure O2 76.8 mmHg (75.0-100.0) Arterial Blood HCO3 20.2 mmol/L (22.0-26.0) L Arterial Blood Oxygen Saturation 95.4 % (95-100) Arterial Blood Base Excess -3.7 (-2-2) L Ashivn Test Positive Current Medications Medications (Trade) Dose Ordered Sig/Hiram Route PRN Reason Start Time Stop Time Status Last Admin Dose Admin Acetaminophen (Tylenol) 650 mg Q4H PRN ORAL Mild Pain (Pain Scale 1-3) 12/12/19 14:30 01/11/20 14:29 Acetaminophen (Tylenol) 650 mg Q4H PRN ORAL fever (T>100.4) 12/12/19 14:30 01/11/20 14:29 Acetaminophen (Tylenol) 650 mg Q4H PRN RECTAL Mild Pain (Pain Scale 1-3) 12/12/19 14:30 01/11/20 14:29 Acetaminophen (Tylenol) 650 mg Q4H PRN RECTAL fever (T>100.4) 12/12/19 14:30 01/11/20 14:29 Albuterol/ Ipratropium (Albuterol/ Ipratropium) 3 ml Q4HRT HHN 12/12/19 15:00 12/17/19 14:59 12/13/19 11:53 Azithromycin 500 mg/Sodium Chloride 275 ml @ 275 mls/hr Q24H IV 12/13/19 15:00 12/20/19 14:59 Bisacodyl (Dulcolax) 10 mg DAILYPRN PRN RECTAL Constipation 12/12/19 14:30 01/11/20 14:29 Budesonide/ Formoterol Fumarate (Symbicort 160/ 4.5) 1 puff BID INH 12/13/19 10:00 01/12/20 09:59 12/13/19 11:54 Ceftriaxone Sodium 1 gm/ Sodium Chloride 55 ml @ 110 mls/hr Q24H IVPB 12/13/19 14:00 12/20/19 13:59 Dextrose (Dextrose 50%) 25 ml Q30M PRN IV Hypoglycemia 12/12/19 14:30 01/11/20 14:29 Dextrose (Dextrose 50%) 50 ml Q30M PRN IV Hypoglycemia 12/12/19 14:30 01/11/20 14:29 Dextrose/Sodium Chloride 1,000 ml @ 50 mls/hr Q20H IV 12/12/19 18:45 01/11/20 18:44 12/12/19 18:54 Docusate Sodium (Colace) 100 mg DAILY ORAL 12/13/19 09:30 01/12/20 09:29 12/13/19 09:37 Escitalopram Oxalate (Lexapro) 20 mg DAILY ORAL 12/13/19 09:30 01/12/20 09:29 12/13/19 09:41 Gabapentin (Neurontin) 300 mg BEDTIME ORAL 12/13/19 21:00 01/12/20 20:59 Heparin Sodium (Porcine) (Heparin 5000 units/ml) 5,000 units EVERY 12 HOURS SUBQ 12/12/19 21:00 01/11/20 20:59 12/13/19 09:39 Levothyroxine Sodium (Synthroid) 75 mcg ACBREAKFAST ORAL 12/14/19 06:30 01/13/20 06:29 Magnesium Hydroxide (Mom) 30 ml HSPRN PRN ORAL Constipation 12/12/19 14:30 01/11/20 14:29 Mirtazapine (Remeron) 7.5 mg BEDTIME ORAL 12/13/19 21:00 01/12/20 20:59 Montelukast Sodium (Singulair) 10 mg DAILY ORAL 12/13/19 10:00 01/12/20 09:59 12/13/19 10:53 Nitroglycerin (Ntg) 0.4 mg Q5M PRN SL Prn Chest Pain 12/12/19 14:30 01/11/20 14:29 Ondansetron HCl (Zofran) 4 mg Q6H PRN IVP Nausea & Vomiting 12/12/19 14:30 01/11/20 14:29 Pantoprazole (Protonix) 40 mg DAILY ORAL 12/13/19 09:00 01/12/20 08:59 12/13/19 09:37 Polyethylene Glycol (Miralax) 17 gm DAILYPRN PRN ORAL Constipation 12/12/19 14:30 01/11/20 14:29 Prednisone (predniSONE) 20 mg DAILY ORAL 12/14/19 09:00 01/13/20 08:59 Raheem Cortes MD Dec 13, 2019 13:50
[2019-12-13] MEDS: cefTRIAXone 1 GM in NS 55 ML IVPB SCH (14:12)
[2019-12-13] MEDS: D5 1/2NS 1,000 ML IV SCH (14:53)
[2019-12-13] MEDS ORDERED: Azithromycin 500 MG in NS 275 ML IV SCH (15:00)
--- NOTE | 2019-12-13 15:00 | Consultation ---
DATE OF CONSULTATION: 12/13/2019 PULMONARY CONSULTATION CONSULTING PHYSICIAN: Sami Perez M.D. REFERRING PHYSICIAN: Sandra Lundberg M.D. HISTORY OF PRESENT ILLNESS: This is an 89-year-old female, who presented to the hospital with shortness of breath. The patient reports that she has asthma. She is admitted to the hospital for subsequent workup and care. The patient has had been in a nursing facility and has had apparently multiple falls as well. ALLERGIES: Allergies to aspirin, codeine, epinephrine, penicillin, and sulfa. REVIEW OF SYSTEMS: Denies any headaches, hematemesis, melena, hematochezia, night sweats, or weight loss. PREVIOUS SURGERIES: None reported by the patient. MEDICATIONS: Home medications reviewed and reconciled in the chart include calcium carbonate, Colace, Lexapro, Neurontin, gabapentin, Synthroid, mirtazapine, Singulair, and Prilosec. CODE STATUS: Full. PHYSICAL EXAMINATION: GENERAL: Reveals elderly female. HEENT: Unremarkable. LUNGS: Clear breath sounds bilaterally with normal heart sounds. ABDOMEN: Soft. EXTREMITIES: There is no appreciable edema. LABORATORY DATA: Lab testing shows white count [id number], hemoglobin 10.8, platelet count is normal. Creatinine 1.4. ABG, pH 7.40, pCO2 32, pO2 76. Urinalysis is negative. X-ray of chest per report has been pending. I do not see a report, we will review chest x-ray. IMPRESSION: 1. Asthma exacerbation. 2. Marked leukocytosis. DISCUSSION: Agree with admission and care. The patient is currently not on steroids. No further leukocytosis is concerning. Agree with Rocephin and azithromycin. We will obtain a x-ray of chest. We will review x-ray of chest that was done yesterday at about 12 noon. Currently, reports are not available. We will follow carefully as crime scene technician. Consider ID eval. I do note that the patient received oral prednisone, which may partially explain the leukocytosis and also received 125 mg of Solu-Medrol yesterday. Given her dyspnea, we will initiate low dose steroids, we will follow carefully. Sami Perez M.D. DR: DAV JOB#: [id number] CC:
[2019-12-13 16:00] VITALS: BP 109/60
[2019-12-13] MEDS: Azithromycin 500 MG in NS 275 ML IV SCH (16:12)
[2019-12-13 20:00] VITALS: BP 107/59
[2019-12-14] VITALS: BP 109/65
[2019-12-14] MEDS: Albuterol/Ipratropium 3ml neb HHN SCH ×6 (03:38→23:59)
[2019-12-14 04:00] VITALS: BP 128/75
[2019-12-14 05:53] LABS: HEMATOCRIT 32.2 % (37.0-47.0); HEMOGLOBIN 10.8 G/DL (12.0-16.0); MEAN CORPUSCULAR VOLUME 99 FL (80-99); PLATELET COUNT 285 K/UL (150-450); RED BLOOD COUNT 3.25 M/UL (4.20-5.40); RED CELL DISTRIBUTION WIDTH 12.3 % (11.6-14.8)
[2019-12-14 06:16] LABS: WHITE BLOOD COUNT 28.1 K/UL (4.8-10.8)
[2019-12-14 06:26] LABS: ALANINE AMINOTRANSFERASE 31 U/L (12-78); ALBUMIN 2.8 G/DL (3.4-5.0); ALBUMIN/GLOBULIN RATIO 0.8 (1.0-2.7); ALKALINE PHOSPHATASE 107 U/L (46-116); ANION GAP 14 mmol/L (5-15); ASPARTATE AMINO TRANSFERASE 23 U/L (15-37); BILIRUBIN,TOTAL 0.4 MG/DL (0.2-1.0); BLOOD UREA NITROGEN 31 mg/dL (7-18); CALCIUM 9.5 MG/DL (8.5-10.1); CARBON DIOXIDE 18 MMOL/L (21-32); CHLORIDE 108 MMOL/L (98-107); CREATININE 1.4 MG/DL (0.55-1.30); POTASSIUM 5.2 MMOL/L (3.5-5.1); SODIUM 139 MMOL/L (136-145)
[2019-12-14 08:00] VITALS: BP 132/68
[2019-12-14] MEDS: Montelukast 10mg tablet ORAL SCH (08:24)
[2019-12-14] MEDS: Docusate 100mg cap ORAL SCH (08:24)
[2019-12-14] MEDS: Heparin 5000 units/ml inj SUBQ SCH ×2 (08:26→20:44)
--- NOTE | 2019-12-14 10:50 | General Progress Note ---
Assessment/Plan Problem List: (1) Sepsis ICD Codes: A41.9 - Sepsis, unspecified organism SNOMED: 60522748 (2) HCAP (healthcare-associated pneumonia) ICD Codes: J18.9 - Pneumonia, unspecified organism SNOMED: 535750400, 050002255 (3) Hypothyroidism ICD Codes: E03.9 - Hypothyroidism, unspecified SNOMED: 49112837 (4) Depression ICD Codes: F32.9 - Major depressive disorder, single episode, unspecified SNOMED: 30778565 (5) Leukocytosis ICD Codes: D72.829 - Elevated white blood cell count, unspecified SNOMED: 675106090, 125162829 Qualifiers: Qualified Codes: D72.828 - Other elevated white blood cell count (6) Asthma exacerbation ICD Codes: J45.901 - Unspecified asthma with (acute) exacerbation SNOMED: 671089522 Qualifiers: Qualified Codes: J45.51 - Severe persistent asthma with (acute) exacerbation Status: stable Assessment/Plan: 89 yo F w PMH of Asthma and multiple asthma exacerbations over the past year, presents from [facility] for sob. Found to have sepsis secondary to pneumonia. #Sepsis secondary to pneumonia. #?right upper lobe mass #Asthma exacerbation #marked Leukocytosis Rocephin, Azithro, add flagyl for anaerobic coverage follow up cultures CT chest for ?rul mass on cxr pending pulmonary consult Dr. Perez Po steroids, neb treatments, LABA/ICS, montelukast monitor white count, could be induced by steroids in combination with sepsis speech evaluation #hypothyroidism continue levothyroxine follow up TSH # CKD, ?stage - ctm bmp - avoid nephrotoxic meds # Hyperkalemia - recheck after 2 L NS in the ED, 5.2-->5 #Depression continue Lexapro VTE ppx: Heparin Gi ppx Code status: DNR PCP: Jeff Rodriguez terry cloth cutter hand: Kahlil Wang I spent 40 minutes on this case with >50% dedicated to care coordination and counseling. Code status was discussed at bedside with patient who states she wishes to be DNR DNI and has written legal documents reflecting her wishes. 17 minutes spent in discussion regarding code status. Subjective Date patient seen: Dec 14, 2019 ROS Limited/Unobtainable: No Constitutional: Denies: no symptoms, chills, diaphoresis, fever, malaise, weakness, other HEENT: Denies: no symptoms, eye pain, blurred vision, tearing, double vision, ear pain, ear discharge, nose pain, nose congestion, throat pain, throat swelling, mouth pain, mouth swelling, other Cardiovascular: Denies: no symptoms, chest pain, edema, irregular heart rate, lightheadedness, palpitations, syncope, other Respiratory: Reports: cough, shortness of breath Gastrointestinal/Abdominal: Denies: no symptoms, abdomen distended, abdominal pain, black stools, tarry stools, blood in stool, constipated, diarrhea, difficulty swallowing, nausea, poor appetite, poor fluid intake, rectal bleeding , vomiting, other Genitourinary: Denies: no symptoms, burning, discharge, frequency, flank pain, hematuria, incontinence, pain, urgency, other Neurologic/Psychiatric: Denies: no symptoms, anxiety, depressed, emotional problems, headache, numbness, paresthesia, pre-existing deficit, seizure, tingling, tremors, weakness, other Endocrine: Denies: no symptoms, excessive sweating, flushing, intolerance to cold, intolerance to heat, increased hunger, increased thirst, increased urine, unexplained weight gain, unexplained weight loss, other Hematologic/Lymphatic: Denies: no symptoms, anemia, easy bleeding, easy bruising, other Allergies: Coded Allergies: ASPIRIN (Verified Allergy, Intermediate, 12/12/19) CODEINE (Verified Allergy, Intermediate, 12/12/19) EPINEPHRINE (Verified Allergy, Intermediate, 12/12/19) PENICILLINS (Verified Allergy, Unknown, 12/12/19) SULFA (SULFONAMIDE ANTIBIOTICS) (Verified Allergy, Unknown, 12/12/19) Subjective much better today. no acute events overnight. spoke with daughter at length on the phone Objective Last 24 Hour Vital Signs Date Time Temp Pulse Resp B/P (MAP) Pulse Ox O2 Delivery O2 Flow Rate FiO2 12/14/19 08:00 97.5 75 21 132/68 (89) 100 12/14/19 08:00 Nasal Cannula 4.0 12/14/19 08:00 4.0 12/14/19 04:00 97.8 75 20 128/75 (92) 95 12/14/19 04:00 77 12/14/19 04:00 Nasal Cannula 4.0 12/14/19 04:00 4.0 12/14/19 03:38 84 18 99 Nasal Cannula 4.0 36 81 21 96 12/14/19 00:00 97.7 91 20 109/65 (80) 95 12/14/19 00:00 87 12/14/19 00:00 Nasal Cannula 4.0 12/14/19 00:00 4.0 12/13/19 23:00 86 20 99 Nasal Cannula 4.0 36 84 21 97 12/13/19 20:47 84 20 99 Nasal Cannula 4.0 36 79 24 96 12/13/19 20:00 4.0 12/13/19 20:00 80 12/13/19 20:00 Nasal Cannula 4.0 12/13/19 20:00 98.8 73 20 107/59 (75) 98 12/13/19 19:17 96 Nasal Cannula 4.0 36 12/13/19 16:00 91 21 98 Nasal Cannula 4.0 36 85 24 96 12/13/19 16:00 80 12/13/19 16:00 6.0 35 12/13/19 16:00 98.4 82 20 109/60 (76) 97 12/13/19 16:00 Nasal Cannula 4.0 12/13/19 12:00 96.6 86 20 125/63 (83) 96 12/13/19 12:00 87 12/13/19 12:00 6.0 35 12/13/19 12:00 Venturi Mask 6.0 12/13/19 11:53 90 22 97 Nasal Cannula 4.0 36 90 24 96 Intake and Output 12/13/19 12/14/19 19:00 07:00 Intake Total 1030 ml 920 ml Output Total 400 ml 700 ml Balance 630 ml 220 ml Intake Oral 200 ml 120 ml IV Total 830 ml 800 ml Output Urine Total 400 ml 700 ml # Voids 2 # Bowel Movements 3 2 Laboratory Tests 12/13/19 17:00: Urine Legionella Antigen [Pending] 12/14/19 04:30: White Blood Count 28.1*H, Red Blood Count 3.25L, Hemoglobin 10.8L, Hematocrit 32.2L, Mean Corpuscular Volume 99, Mean Corpuscular Hemoglobin 33.4H, Mean Corpuscular Hemoglobin Concent 33.7, Red Cell Distribution Width 12.3, Platelet Count 285, Mean Platelet Volume 5.5L, Neutrophils (%) (Auto) , Lymphocytes (%) ( Auto) , Monocytes (%) (Auto) , Eosinophils (%) (Auto) , Basophils (%) (Auto) , Differential Total Cells Counted 100, Neutrophils % (Manual) 85H, Lymphocytes % (Manual) 11L, Monocytes % (Manual) 3, Eosinophils % (Manual) 1, Basophils % ( Manual) 0, Band Neutrophils 0, Platelet Estimate Adequate, Platelet Morphology Normal, Hypochromasia 1+, Anisocytosis 1+, Sodium Level 139, Potassium Level 5.2H, Chloride Level 108H, Carbon Dioxide Level 18L, Anion Gap 14, Blood Urea Nitrogen 31H, Creatinine 1.4H, Estimat Glomerular Filtration Rate , Glucose Level 122H, Calcium Level 9.5, Total Bilirubin 0.4, Aspartate Amino Transf (AST/ SGOT) 23, Alanine Aminotransferase (ALT/SGPT) 31, Alkaline Phosphatase 107, Total Protein 6.5, Albumin 2.8L, Globulin 3.7, Albumin/Globulin Ratio 0.8L Height (Feet): 5 Height (Inches): 3.00 Weight (Pounds): 177 Objective General Appearance: WD/WN, alert, mild distress HEENT: atraumatic, anicteric, EOMI Neck: normal alignment, supple Respiratory/Chest: lungs clear, normal breath sounds, accessory muscle use, crackles/rales Cardiovascular/Chest: normal peripheral pulses, normal rate, regular rhythm Abdomen: non tender, soft, no organomegaly Extremities: non-tender, no edema, no cyanosis Neurologic: plasma center technician II-XII grossly normal, no motor/sensory deficits, oriented x 3 , responsive Musculoskeletal: atrophy Nash Davis M.D. Dec 14, 2019 10:50
--- NOTE | 2019-12-14 10:52 | Pulmonology Progress Note ---
Assessment/Plan Assessment/Plan IMPRESSION: 1. Asthma exacerbation. 2. Marked leukocytosis. 3. RUL infiltrate DISCUSSION: Agree with antibiotivs Will obtain CT chest given RUL infiltrate. Continue prednisone, O2 and HHN Sami Perez M.D. Subjective Interval Events: Feeling better Constitutional: Reports: no symptoms HEENT: Repors: no symptoms Respiratory: Reports: no symptoms Cardiovascular: Reports: no symptoms Gastrointestinal/Abdominal: Reports: no symptoms Genitourinary: Reports: no symptoms Allergies: Coded Allergies: ASPIRIN (Verified Allergy, Intermediate, 12/12/19) CODEINE (Verified Allergy, Intermediate, 12/12/19) EPINEPHRINE (Verified Allergy, Intermediate, 12/12/19) PENICILLINS (Verified Allergy, Unknown, 12/12/19) SULFA (SULFONAMIDE ANTIBIOTICS) (Verified Allergy, Unknown, 12/12/19) Objective Last 24 Hour Vital Signs Date Time Temp Pulse Resp B/P (MAP) Pulse Ox O2 Delivery O2 Flow Rate FiO2 12/14/19 08:00 97.5 75 21 132/68 (89) 100 12/14/19 08:00 Nasal Cannula 4.0 12/14/19 08:00 4.0 12/14/19 04:00 97.8 75 20 128/75 (92) 95 12/14/19 04:00 77 12/14/19 04:00 Nasal Cannula 4.0 12/14/19 04:00 4.0 12/14/19 03:38 84 18 99 Nasal Cannula 4.0 36 81 21 96 12/14/19 00:00 97.7 91 20 109/65 (80) 95 12/14/19 00:00 87 12/14/19 00:00 Nasal Cannula 4.0 12/14/19 00:00 4.0 12/13/19 23:00 86 20 99 Nasal Cannula 4.0 36 84 21 97 12/13/19 20:47 84 20 99 Nasal Cannula 4.0 36 79 24 96 12/13/19 20:00 4.0 12/13/19 20:00 80 12/13/19 20:00 Nasal Cannula 4.0 12/13/19 20:00 98.8 73 20 107/59 (75) 98 12/13/19 19:17 96 Nasal Cannula 4.0 36 12/13/19 16:00 91 21 98 Nasal Cannula 4.0 36 85 24 96 12/13/19 16:00 80 12/13/19 16:00 6.0 35 12/13/19 16:00 98.4 82 20 109/60 (76) 97 12/13/19 16:00 Nasal Cannula 4.0 12/13/19 12:00 96.6 86 20 125/63 (83) 96 12/13/19 12:00 87 12/13/19 12:00 6.0 35 12/13/19 12:00 Venturi Mask 6.0 12/13/19 11:53 90 22 97 Nasal Cannula 4.0 36 90 24 96 Intake and Output 12/13/19 12/14/19 19:00 07:00 Intake Total 1030 ml 920 ml Output Total 400 ml 700 ml Balance 630 ml 220 ml Intake Oral 200 ml 120 ml IV Total 830 ml 800 ml Output Urine Total 400 ml 700 ml # Voids 2 # Bowel Movements 3 2 General Appearance: no acute distress HEENT: normocephalic Respiratory/Chest: chest wall non-tender, decreased breath sounds Cardiovascular: normal peripheral pulses, normal rate Abdomen: normal bowel sounds Microbiology Date/Time Source Procedure Growth Status 12/12/19 12:35 Blood Blood Culture - Preliminary NO GROWTH AFTER 24 HOURS Resulted 12/12/19 12:25 Blood Blood Culture - Preliminary NO GROWTH AFTER 24 HOURS Resulted 12/12/19 14:20 Nasal Nares Left MRSA Culture - Final NO METHICILLIN RESISTANT STAPH AUREUS... Complete 12/12/19 14:20 Rectum - Final NO CARBAPENEM-RESISTANT ENTEROBACTERI... Complete 12/12/19 14:20 Rectum VRE Culture - Final NO VANCOMYCIN RESISTANT ENTEROCOCCUS ... Complete Laboratory Tests 12/13/19 17:00: Urine Legionella Antigen [Pending] 12/14/19 04:30: White Blood Count 28.1*H, Red Blood Count 3.25L, Hemoglobin 10.8L, Hematocrit 32.2L, Mean Corpuscular Volume 99, Mean Corpuscular Hemoglobin 33.4H, Mean Corpuscular Hemoglobin Concent 33.7, Red Cell Distribution Width 12.3, Platelet Count 285, Mean Platelet Volume 5.5L, Neutrophils (%) (Auto) , Lymphocytes (%) ( Auto) , Monocytes (%) (Auto) , Eosinophils (%) (Auto) , Basophils (%) (Auto) , Differential Total Cells Counted 100, Neutrophils % (Manual) 85H, Lymphocytes % (Manual) 11L, Monocytes % (Manual) 3, Eosinophils % (Manual) 1, Basophils % ( Manual) 0, Band Neutrophils 0, Platelet Estimate Adequate, Platelet Morphology Normal, Hypochromasia 1+, Anisocytosis 1+, Sodium Level 139, Potassium Level 5.2H, Chloride Level 108H, Carbon Dioxide Level 18L, Anion Gap 14, Blood Urea Nitrogen 31H, Creatinine 1.4H, Estimat Glomerular Filtration Rate , Glucose Level 122H, Calcium Level 9.5, Total Bilirubin 0.4, Aspartate Amino Transf (AST/ SGOT) 23, Alanine Aminotransferase (ALT/SGPT) 31, Alkaline Phosphatase 107, Total Protein 6.5, Albumin 2.8L, Globulin 3.7, Albumin/Globulin Ratio 0.8L Current Medications Medications (Trade) Dose Ordered Sig/Hiram Route PRN Reason Start Time Stop Time Status Last Admin Dose Admin Acetaminophen (Tylenol) 650 mg Q4H PRN ORAL Mild Pain (Pain Scale 1-3) 12/12/19 14:30 01/11/20 14:29 Acetaminophen (Tylenol) 650 mg Q4H PRN ORAL fever (T>100.4) 12/12/19 14:30 01/11/20 14:29 Acetaminophen (Tylenol) 650 mg Q4H PRN RECTAL Mild Pain (Pain Scale 1-3) 12/12/19 14:30 01/11/20 14:29 Acetaminophen (Tylenol) 650 mg Q4H PRN RECTAL fever (T>100.4) 12/12/19 14:30 01/11/20 14:29 Albuterol/ Ipratropium (Albuterol/ Ipratropium) 3 ml Q4HRT HHN 12/12/19 15:00 12/17/19 14:59 12/14/19 08:04 Azithromycin 500 mg/Sodium Chloride 275 ml @ 275 mls/hr Q24H IV 12/13/19 15:00 12/20/19 14:59 12/13/19 16:12 Bisacodyl (Dulcolax) 10 mg DAILYPRN PRN RECTAL Constipation 12/12/19 14:30 01/11/20 14:29 Budesonide/ Formoterol Fumarate (Symbicort 160/ 4.5) 1 puff BID INH 12/13/19 10:00 01/12/20 09:59 12/14/19 08:24 Ceftriaxone Sodium 1 gm/ Sodium Chloride 55 ml @ 110 mls/hr Q24H IVPB 12/13/19 14:00 12/20/19 13:59 12/13/19 14:12 Dextrose (Dextrose 50%) 25 ml Q30M PRN IV Hypoglycemia 12/12/19 14:30 01/11/20 14:29 Dextrose (Dextrose 50%) 50 ml Q30M PRN IV Hypoglycemia 12/12/19 14:30 01/11/20 14:29 Dextrose/Sodium Chloride 1,000 ml @ 50 mls/hr Q20H IV 12/12/19 18:45 01/11/20 18:44 12/13/19 14:53 Docusate Sodium (Colace) 100 mg DAILY ORAL 12/13/19 09:30 01/12/20 09:29 12/14/19 08:24 Escitalopram Oxalate (Lexapro) 20 mg DAILY ORAL 12/13/19 09:30 01/12/20 09:29 12/14/19 08:24 Gabapentin (Neurontin) 300 mg BEDTIME ORAL 12/13/19 21:00 01/12/20 20:59 12/13/19 20:30 Heparin Sodium (Porcine) (Heparin 5000 units/ml) 5,000 units EVERY 12 HOURS SUBQ 12/12/19 21:00 01/11/20 20:59 12/14/19 08:26 Levothyroxine Sodium (Synthroid) 75 mcg ACBREAKFAST ORAL 12/14/19 06:30 01/13/20 06:29 12/14/19 06:25 Magnesium Hydroxide (Mom) 30 ml HSPRN PRN ORAL Constipation 12/12/19 14:30 01/11/20 14:29 Metronidazole 100 ml @ 100 mls/hr Q8HR IVPB 12/13/19 14:00 12/20/19 13:59 12/14/19 05:28 Mirtazapine (Remeron) 7.5 mg BEDTIME ORAL 12/13/19 21:00 01/12/20 20:59 12/13/19 20:30 Montelukast Sodium (Singulair) 10 mg DAILY ORAL 12/13/19 10:00 01/12/20 09:59 12/14/19 08:24 Nitroglycerin (Ntg) 0.4 mg Q5M PRN SL Prn Chest Pain 12/12/19 14:30 01/11/20 14:29 Ondansetron HCl (Zofran) 4 mg Q6H PRN IVP Nausea & Vomiting 12/12/19 14:30 01/11/20 14:29 Pantoprazole (Protonix) 40 mg DAILY ORAL 12/13/19 09:00 01/12/20 08:59 12/14/19 08:24 Polyethylene Glycol (Miralax) 17 gm DAILYPRN PRN ORAL Constipation 12/12/19 14:30 01/11/20 14:29 Prednisone (predniSONE) 20 mg DAILY ORAL 12/14/19 09:00 01/13/20 08:59 12/14/19 08:25 Sami Perez MD Dec 14, 2019 10:52
[2019-12-14] MEDS: D5 1/2NS 1,000 ML IV SCH (11:05)
[2019-12-14 12:00] VITALS: BP 134/75
[2019-12-14] MEDS: cefTRIAXone 1 GM in NS 55 ML IVPB SCH (13:43)
[2019-12-14 16:00] VITALS: BP 133/88
[2019-12-14] MEDS: Azithromycin 500 MG in NS 275 ML IV SCH (16:22)
[2019-12-14 20:00] VITALS: BP 101/56
--- NOTE | 2019-12-14 22:58 | Infectious Diseases Prog Note ---
Assessment/Plan Assessment/Plan A) 1) sepsis, cap, leukocytosis 2) pmh noted, hx steroids 3) allergies - asa, pcn P) 1) rocephin, flagyl, azithromycin 2) check cultures, labs and chest x-ray 3) monitor labs 4) CT chest ordered, will add CT abdomen and pelvis because of pronounced leukocytosis Subjective Constitutional: Denies: fever HEENT: Reports: congestion - less Respiratory: Reports: shortness of breath - less Cardiovascular: Denies: chest pain Gastrointestinal/Abdominal: Denies: nausea, vomiting, diarrhea Allergies: Coded Allergies: ASPIRIN (Verified Allergy, Intermediate, 12/12/19) CODEINE (Verified Allergy, Intermediate, 12/12/19) EPINEPHRINE (Verified Allergy, Intermediate, 12/12/19) PENICILLINS (Verified Allergy, Unknown, 12/12/19) SULFA (SULFONAMIDE ANTIBIOTICS) (Verified Allergy, Unknown, 12/12/19) Objective Vital Signs Last 24 Hour Vital Signs Date Time Temp Pulse Resp B/P (MAP) Pulse Ox O2 Delivery O2 Flow Rate FiO2 12/14/19 18:55 98 Nasal Cannula 3.0 32 12/14/19 18:52 81 18 100 Nasal Cannula 3.0 32 78 21 98 12/14/19 16:00 85 12/14/19 16:00 98.1 78 23 133/88 (103) 96 12/14/19 16:00 Nasal Cannula 4.0 12/14/19 16:00 4.0 12/14/19 15:59 72 18 100 Nasal Cannula 4.0 36 69 22 100 12/14/19 12:37 74 20 100 Nasal Cannula 4.0 36 79 20 99 12/14/19 12:00 97.5 85 23 134/75 (94) 99 12/14/19 12:00 4.0 12/14/19 12:00 79 12/14/19 12:00 Nasal Cannula 4.0 12/14/19 08:04 79 18 100 Nasal Cannula 4.0 36 77 18 97 12/14/19 08:00 97.5 75 21 132/68 (89) 100 12/14/19 08:00 Nasal Cannula 4.0 12/14/19 08:00 4.0 12/14/19 08:00 73 12/14/19 07:59 97 Nasal Cannula 4.0 36 12/14/19 04:00 97.8 75 20 128/75 (92) 95 12/14/19 04:00 77 12/14/19 04:00 Nasal Cannula 4.0 12/14/19 04:00 4.0 12/14/19 03:38 84 18 99 Nasal Cannula 4.0 36 81 21 96 12/14/19 00:00 97.7 91 20 109/65 (80) 95 12/14/19 00:00 87 12/14/19 00:00 Nasal Cannula 4.0 12/14/19 00:00 4.0 12/13/19 23:00 86 20 99 Nasal Cannula 4.0 36 84 21 97 Height (Feet): 5 Height (Inches): 3.00 Weight (Pounds): 177 General Appearance: no acute distress HEENT: normocephalic, atraumatic, anicteric Respiratory/Chest: crackles/rales, rhonchi - bilaterally Cardiovascular: normal rate, regular rhythm Abdomen: normal bowel sounds, soft, non tender, no organomegaly Microbiology Date/Time Source Procedure Growth Status 12/12/19 12:35 Blood Blood Culture - Preliminary NO GROWTH AFTER 24 HOURS Resulted 12/12/19 12:25 Blood Blood Culture - Preliminary NO GROWTH AFTER 24 HOURS Resulted 12/12/19 14:20 Nasal Nares Left MRSA Culture - Final NO METHICILLIN RESISTANT STAPH AUREUS... Complete 12/12/19 14:20 Rectum - Final NO CARBAPENEM-RESISTANT ENTEROBACTERI... Complete 12/12/19 14:20 Rectum VRE Culture - Final NO VANCOMYCIN RESISTANT ENTEROCOCCUS ... Complete Laboratory Tests Test 12/14/19 04:30 White Blood Count 28.1 K/UL (4.8-10.8) *H Red Blood Count 3.25 M/UL (4.20-5.40) L Hemoglobin 10.8 G/DL (12.0-16.0) L Hematocrit 32.2 % (37.0-47.0) L Mean Corpuscular Volume 99 FL (80-99) Mean Corpuscular Hemoglobin 33.4 PG (27.0-31.0) H Mean Corpuscular Hemoglobin Concent 33.7 G/DL (32.0-36.0) Red Cell Distribution Width 12.3 % (11.6-14.8) Platelet Count 285 K/UL (150-450) Mean Platelet Volume 5.5 FL (6.5-10.1) L Neutrophils (%) (Auto) % (45.0-75.0) Lymphocytes (%) (Auto) % (20.0-45.0) Monocytes (%) (Auto) % (1.0-10.0) Eosinophils (%) (Auto) % (0.0-3.0) Basophils (%) (Auto) % (0.0-2.0) Differential Total Cells Counted 100 Neutrophils % (Manual) 85 % (45-75) H Lymphocytes % (Manual) 11 % (20-45) L Monocytes % (Manual) 3 % (1-10) Eosinophils % (Manual) 1 % (0-3) Basophils % (Manual) 0 % (0-2) Band Neutrophils 0 % (0-8) Platelet Estimate Adequate Platelet Morphology Normal Hypochromasia 1+ Anisocytosis 1+ Sodium Level 139 MMOL/L (136-145) Potassium Level 5.2 MMOL/L (3.5-5.1) H Chloride Level 108 MMOL/L (98-107) H Carbon Dioxide Level 18 MMOL/L (21-32) L Anion Gap 14 mmol/L (5-15) Blood Urea Nitrogen 31 mg/dL (7-18) H Creatinine 1.4 MG/DL (0.55-1.30) H Estimat Glomerular Filtration Rate mL/min (>60) Glucose Level 122 MG/DL (74-106) H Calcium Level 9.5 MG/DL (8.5-10.1) Total Bilirubin 0.4 MG/DL (0.2-1.0) Aspartate Amino Transf (AST/SGOT) 23 U/L (15-37) Alanine Aminotransferase (ALT/SGPT) 31 U/L (12-78) Alkaline Phosphatase 107 U/L (46-116) Total Protein 6.5 G/DL (6.4-8.2) Albumin 2.8 G/DL (3.4-5.0) L Globulin 3.7 g/dL Albumin/Globulin Ratio 0.8 (1.0-2.7) L Current Medications Medications (Trade) Dose Ordered Sig/Hiram Route PRN Reason Start Time Stop Time Status Last Admin Dose Admin Acetaminophen (Tylenol) 650 mg Q4H PRN ORAL Mild Pain (Pain Scale 1-3) 12/12/19 14:30 01/11/20 14:29 Acetaminophen (Tylenol) 650 mg Q4H PRN ORAL fever (T>100.4) 12/12/19 14:30 01/11/20 14:29 Acetaminophen (Tylenol) 650 mg Q4H PRN RECTAL Mild Pain (Pain Scale 1-3) 12/12/19 14:30 01/11/20 14:29 Acetaminophen (Tylenol) 650 mg Q4H PRN RECTAL fever (T>100.4) 12/12/19 14:30 01/11/20 14:29 Albuterol/ Ipratropium (Albuterol/ Ipratropium) 3 ml Q4HRT HHN 12/12/19 15:00 12/17/19 14:59 12/14/19 18:51 Azithromycin 500 mg/Sodium Chloride 275 ml @ 275 mls/hr Q24H IV 12/13/19 15:00 12/20/19 14:59 12/14/19 16:22 Bisacodyl (Dulcolax) 10 mg DAILYPRN PRN RECTAL Constipation 12/12/19 14:30 01/11/20 14:29 Budesonide/ Formoterol Fumarate (Symbicort 160/ 4.5) 1 puff BID INH 12/13/19 10:00 01/12/20 09:59 12/14/19 18:50 Ceftriaxone Sodium 1 gm/ Sodium Chloride 55 ml @ 110 mls/hr Q24H IVPB 12/13/19 14:00 12/20/19 13:59 12/14/19 13:43 Dextrose (Dextrose 50%) 25 ml Q30M PRN IV Hypoglycemia 12/12/19 14:30 01/11/20 14:29 Dextrose (Dextrose 50%) 50 ml Q30M PRN IV Hypoglycemia 12/12/19 14:30 01/11/20 14:29 Dextrose/Sodium Chloride 1,000 ml @ 50 mls/hr Q20H IV 12/12/19 18:45 01/11/20 18:44 12/14/19 11:05 Docusate Sodium (Colace) 100 mg DAILY ORAL 12/13/19 09:30 01/12/20 09:29 12/14/19 08:24 Escitalopram Oxalate (Lexapro) 20 mg DAILY ORAL 12/13/19 09:30 01/12/20 09:29 12/14/19 08:24 Gabapentin (Neurontin) 300 mg BEDTIME ORAL 12/13/19 21:00 01/12/20 20:59 12/14/19 20:42 Heparin Sodium (Porcine) (Heparin 5000 units/ml) 5,000 units EVERY 12 HOURS SUBQ 12/12/19 21:00 01/11/20 20:59 12/14/19 20:44 Levothyroxine Sodium (Synthroid) 75 mcg ACBREAKFAST ORAL 12/14/19 06:30 01/13/20 06:29 12/14/19 06:25 Magnesium Hydroxide (Mom) 30 ml HSPRN PRN ORAL Constipation 12/12/19 14:30 01/11/20 14:29 Metronidazole 100 ml @ 100 mls/hr Q8HR IVPB 12/13/19 14:00 12/20/19 13:59 12/14/19 21:16 Mirtazapine (Remeron) 7.5 mg BEDTIME ORAL 12/13/19 21:00 01/12/20 20:59 12/14/19 20:42 Montelukast Sodium (Singulair) 10 mg DAILY ORAL 12/13/19 10:00 01/12/20 09:59 12/14/19 08:24 Nitroglycerin (Ntg) 0.4 mg Q5M PRN SL Prn Chest Pain 12/12/19 14:30 01/11/20 14:29 Ondansetron HCl (Zofran) 4 mg Q6H PRN IVP Nausea & Vomiting 12/12/19 14:30 01/11/20 14:29 Pantoprazole (Protonix) 40 mg DAILY ORAL 12/13/19 09:00 01/12/20 08:59 12/14/19 08:24 Polyethylene Glycol (Miralax) 17 gm DAILYPRN PRN ORAL Constipation 12/12/19 14:30 01/11/20 14:29 Prednisone (predniSONE) 20 mg DAILY ORAL 12/14/19 09:00 01/13/20 08:59 12/14/19 08:25 Raheem Cortes MD Dec 14, 2019 22:58
[2019-12-15] VITALS: BP 106/53
--- NOTE | 2019-12-15 01:15 | Consultation ---
DATE OF CONSULTATION: 12/14/2019 INFECTIOUS DISEASES CONSULTATION CONSULTING PHYSICIAN: Raheem Cortes M.D. ATTENDING PHYSICIAN: Sandra Lundberg M.D. REFERRING PHYSICIAN: Nash Davis M.D. REASON FOR CONSULTATION: Sepsis, pneumonia, and leukocytosis. CHIEF COMPLAINT: The patient's chief complaint coming into the hospital is dyspnea and respiratory distress. HISTORY OF PRESENT ILLNESS: This is a very pleasant 89-year-old female comes into [facility] with shortness of breath and congestion. Imaging study showed on chest x-ray that she had a nodular-appearing infiltrate versus mass in the right lobe. The patient's Infectious Disease was requested also because the patient had severe leukocytosis and possible severe sepsis. The patient was seen yesterday and started on azithromycin, Rocephin, and Flagyl. Because of the location of the infiltrate, also there was concern that the patient could have aspiration in addition to community-acquired pneumonia. Serology and sputum culture are pending. Blood cultures are negative to date and UA was negative. The patient to get a CT scan of the chest. I have also ordered abdomen and pelvis CT, both without contrast since the patient has still significant leukocytosis. MAR was noted. Orders were noted. Notes and records were reviewed. REVIEW OF SYSTEMS: CONSTITUTIONAL: Generalized fatigue. No new focal weakness. No night sweats, fever, chills, or weight loss. HEAD AND NECK: No head pain or neck pain. No neck stiffness, thrush, or dysphagia. No headache. CARDIAC: No chest pain or pressors. GASTROINTESTINAL: She does have constipation. No nausea, vomiting, abdominal pain, or diarrhea. GENITOURINARY: No Ramos. No dysuria, frequency, or CVA tenderness. PULMONARY: Cough, congestion, and shortness of breath. No secretions. SKIN: No rash. EXTREMITIES: No effusion. Legs are without cellulitis. NEUROLOGICAL: Generalized fatigue. No focal weakness. No seizures, rash, or itching. PAST MEDICAL HISTORY: The patient has a past medical history of following. She has a past medical history of asthma. She has leukocytosis. She has also past medical history of chronic kidney disease and hyperkalemia. She has other past medical history of hypothyroidism and depression in addition to chronic kidney disease, asthma, leukocytosis, and hyperkalemia. She has been on steroids. ALLERGIES: Include aspirin, codeine, epinephrine, penicillin, and sulfa drugs. SOCIAL HISTORY: Negative for smoking, alcohol, or drug abuse. FAMILY HISTORY: Noncontributory. Negative for exposure to tuberculosis or cancer. MEDICATIONS: Upon reviewing the MAR, she is on following medications. She is on levothyroxine, gabapentin, and Neurontin. She is on mirtazapine, prednisone, azithromycin, Rocephin, Flagyl, docusate, Lexapro, Protonix, heparin, albuterol treatments, nitroglycerin p.r.n., acetaminophen, bisacodyl, magnesium hydroxide, polyethylene glycol, and Zofran. Outside medications noted and reconciliated. PHYSICAL EXAMINATION: VITAL SIGNS: Temperature is 98.1 degrees, pulse rate 81, respiratory rate 21, blood pressure 133/88, and saturation 97% on 3 liters. Pulse rate on admission was high as 106. Respiratory rate has been as high as 32 on admission. GENERAL: Alert and responsive. Mild shortness of breath noted. HEAD AND NECK: Oral exam, no thrush. Eye exam, no icterus. Normocephalic. Neck is supple. No JVD. HEART: Regular rate and rhythm. No gallop or murmur. ABDOMEN: Soft. Some distention. Positive bowel sounds noted. No rebound. No tenderness. LUNGS: Bilateral rhonchi, rales, and crackles. SKIN: No rash. MUSCULOSKELETAL: No effusions. Legs are without cellulitis. PERIPHERAL VASCULAR: No cyanosis or gangrene. GENITOURINARY: No Ramos. LINE SITES: Without phlebitis. NEUROLOGICAL: Intact. Nonfocal. Alert, responsive, and oriented. LABORATORY DATA AND IMAGING: Laboratory as follows, UA with leukocyte esterase negative, was negative essentially. Creatinine 1.4. White count 28.1 and hemoglobin 10.8. White count on admission 32.6. UA negative. Serology and sputum culture are pending. I do not know if we were able to obtain sputum culture. Blood cultures are negative to date. CT scan of the chest and abdomen without contrast has been ordered. LFTs were unremarkable. ASSESSMENT AND PLAN: 1. The patient has sepsis, systemic inflammatory response syndrome criteria, severe leukocytosis, possible severe sepsis, renal failure, initial tachycardia, and tachypnea. Source of sepsis is likely pulmonary. Chest x-ray showed right upper lobe nodule infiltrate. At this time, we will continue Rocephin, Flagyl, and azithromycin to cover pneumonia including community-acquired pneumonia and aspiration healthcare-acquired pneumonia in addition to the sepsis. Blood cultures are negative to date. Currently, on Rocephin, azithromycin, and Flagyl for pneumonia, sepsis, and leukocytosis. Check CT scan of the abdomen and pelvis and also her chest because of the severe leukocytosis. Check cultures, labs, and follow up chest x-ray. Continue Rocephin, azithromycin, and Flagyl pending workup. 2. Elevated creatinine and chronic renal failure. 3. Short of breath and hypoxia. 4. Asthma history. 5. Anemia. 6. Hypothyroidism. 7. Depression. 8. No mention of diabetes or hypertension. 9. Allergies to aspirin, codeine, epinephrine, penicillin, and sulfa. She tolerates Rocephin. 10. Family history is noncontributory. 11. Social history is negative. 12. MAR is noted. 13. Case was discussed with RN. 14. Skin care protocol. 15. Continue treatment per primary consultants. 16. Orders were noted and entered. Thank you for this consultation. I will follow. Raheem Cortes M.D. DR: NEDA JOB#: [id number] CC:
[2019-12-15] MEDS: Albuterol/Ipratropium 3ml neb HHN SCH ×6 (03:00→22:55)
[2019-12-15 04:00] VITALS: BP 148/89
[2019-12-15 05:53] LABS: BASOPHILS % (AUTO) 0.6 % (0.0-2.0); EOSINOPHILS % (AUTO) 1.6 % (0.0-3.0); HEMATOCRIT 31.1 % (37.0-47.0); HEMOGLOBIN 10.4 G/DL (12.0-16.0); LYMPHOCYTES % (AUTO) 24.8 % (20.0-45.0); MEAN CORPUSCULAR VOLUME 98 FL (80-99); MONOCYTES % (AUTO) 11.3 % (1.0-10.0); NEUTROPHILS % (AUTO) 61.7 % (45.0-75.0); PLATELET COUNT 278 K/UL (150-450); RED BLOOD COUNT 3.19 M/UL (4.20-5.40); RED CELL DISTRIBUTION WIDTH 12.3 % (11.6-14.8); WHITE BLOOD COUNT 16.9 K/UL (4.8-10.8)
[2019-12-15] MEDS: D5 1/2NS 1,000 ML IV SCH (06:16)
[2019-12-15 06:17] LABS: ALANINE AMINOTRANSFERASE 28 U/L (12-78); ALBUMIN 2.6 G/DL (3.4-5.0); ALBUMIN/GLOBULIN RATIO 0.8 (1.0-2.7); ALKALINE PHOSPHATASE 88 U/L (46-116); ANION GAP 9 mmol/L (5-15); ASPARTATE AMINO TRANSFERASE 17 U/L (15-37); BILIRUBIN,TOTAL 0.2 MG/DL (0.2-1.0); BLOOD UREA NITROGEN 26 mg/dL (7-18); CARBON DIOXIDE 24 MMOL/L (21-32); CHLORIDE 112 MMOL/L (98-107); CREATININE 1.3 MG/DL (0.55-1.30); POTASSIUM 4.3 MMOL/L (3.5-5.1); SODIUM 145 MMOL/L (136-145)
[2019-12-15 08:00] VITALS: BP 148/89
[2019-12-15] MEDS: Montelukast 10mg tablet ORAL SCH (08:56)
[2019-12-15] MEDS: Heparin 5000 units/ml inj SUBQ SCH ×2 (08:59→21:00)
[2019-12-15] MEDS: Docusate 100mg cap ORAL SCH (09:05)
--- NOTE | 2019-12-15 09:19 | Diagnostic Imaging Report ---
Indication: Shortness of breath Technique: One view of the chest Comparison: 12/12/2019 Findings: Less optimal inspiration currently. Peripheral pleural based opacity is seen in the right midlung, larger than on the prior study. There is some central bronchial wall thickening. The remainder of the lungs and pleural spaces are clear otherwise. There are degenerative changes of the left shoulder again demonstrated Impression: Enlarging peripheral pleural-based opacity in the right hemithorax. May indicate an enlarging peripheral infiltrate versus an enlarging loculated pleural effusion Other findings as noted
--- NOTE | 2019-12-15 09:20 | Pulmonology Progress Note ---
Assessment/Plan Assessment/Plan IMPRESSION: 1. Asthma exacerbation. 2. Marked leukocytosis. Now improved (16K) 3. RUL infiltrate; await CT chest DISCUSSION: Agree with antibiotics Await CT chest Continue prednisone, O2 and HHN Sami Perez M.D. Subjective Interval Events: Feeling better Constitutional: Reports: no symptoms HEENT: Repors: no symptoms Respiratory: Reports: shortness of breath Cardiovascular: Reports: no symptoms Gastrointestinal/Abdominal: Reports: no symptoms Genitourinary: Reports: no symptoms Allergies: Coded Allergies: ASPIRIN (Verified Allergy, Intermediate, 12/12/19) CODEINE (Verified Allergy, Intermediate, 12/12/19) EPINEPHRINE (Verified Allergy, Intermediate, 12/12/19) PENICILLINS (Verified Allergy, Unknown, 12/12/19) SULFA (SULFONAMIDE ANTIBIOTICS) (Verified Allergy, Unknown, 12/12/19) Objective Last 24 Hour Vital Signs Date Time Temp Pulse Resp B/P (MAP) Pulse Ox O2 Delivery O2 Flow Rate FiO2 12/15/19 07:32 98 Nasal Cannula 3.0 32 12/15/19 07:22 65 17 99 Nasal Cannula 3.0 32 67 16 98 12/15/19 04:00 68 12/15/19 04:00 Nasal Cannula 4.0 12/15/19 04:00 4.0 12/15/19 04:00 98.0 77 21 148/89 (108) 98 12/15/19 00:00 79 12/15/19 00:00 Nasal Cannula 4.0 12/15/19 00:00 79 18 99 Nasal Cannula 3.0 32 77 21 98 12/15/19 00:00 98.0 85 22 106/53 (70) 97 12/15/19 00:00 4.0 12/14/19 20:00 4.0 12/14/19 20:00 98.1 80 24 101/56 (71) 96 12/14/19 20:00 88 12/14/19 20:00 Nasal Cannula 4.0 12/14/19 18:55 98 Nasal Cannula 3.0 32 12/14/19 18:52 81 18 100 Nasal Cannula 3.0 32 78 21 98 12/14/19 16:00 85 12/14/19 16:00 98.1 78 23 133/88 (103) 96 12/14/19 16:00 Nasal Cannula 4.0 12/14/19 16:00 4.0 12/14/19 15:59 72 18 100 Nasal Cannula 4.0 36 69 22 100 12/14/19 12:37 74 20 100 Nasal Cannula 4.0 36 79 20 99 12/14/19 12:00 97.5 85 23 134/75 (94) 99 12/14/19 12:00 4.0 12/14/19 12:00 79 12/14/19 12:00 Nasal Cannula 4.0 Intake and Output 12/14/19 12/15/19 19:00 07:00 Intake Total 1330 ml 600 ml Output Total 900 ml 500 ml Balance 430 ml 100 ml Intake Oral 300 ml IV Total 1030 ml 600 ml Output Urine Total 900 ml 500 ml General Appearance: no acute distress HEENT: normocephalic Respiratory/Chest: chest wall non-tender, lungs clear Cardiovascular: normal peripheral pulses, normal rate Abdomen: normal bowel sounds Microbiology Date/Time Source Procedure Growth Status 12/12/19 12:35 Blood Blood Culture - Preliminary NO GROWTH AFTER 48 HOURS Resulted 12/12/19 12:25 Blood Blood Culture - Preliminary NO GROWTH AFTER 48 HOURS Resulted 12/12/19 14:20 Nasal Nares Left MRSA Culture - Final NO METHICILLIN RESISTANT STAPH AUREUS... Complete 12/12/19 14:20 Rectum - Final NO CARBAPENEM-RESISTANT ENTEROBACTERI... Complete 12/12/19 14:20 Rectum VRE Culture - Final NO VANCOMYCIN RESISTANT ENTEROCOCCUS ... Complete Laboratory Tests 12/15/19 04:00: White Blood Count 16.9H, Red Blood Count 3.19L, Hemoglobin 10.4L, Hematocrit 31.1L, Mean Corpuscular Volume 98, Mean Corpuscular Hemoglobin 32.6H, Mean Corpuscular Hemoglobin Concent 33.4, Red Cell Distribution Width 12.3, Platelet Count 278, Mean Platelet Volume 6.7, Neutrophils (%) (Auto) 61.7, Lymphocytes (% ) (Auto) 24.8, Monocytes (%) (Auto) 11.3H, Eosinophils (%) (Auto) 1.6, Basophils (%) (Auto) 0.6, Sodium Level 145, Potassium Level 4.3, Chloride Level 112H, Carbon Dioxide Level 24, Anion Gap 9, Blood Urea Nitrogen 26H, Creatinine 1.3, Estimat Glomerular Filtration Rate , Glucose Level 91, Calcium Level 9.0, Total Bilirubin 0.2, Aspartate Amino Transf (AST/SGOT) 17, Alanine Aminotransferase (ALT/SGPT) 28, Alkaline Phosphatase 88, Total Protein 6.0L, Albumin 2.6L, Globulin 3.4, Albumin/Globulin Ratio 0.8L Current Medications Medications (Trade) Dose Ordered Sig/Hiram Route PRN Reason Start Time Stop Time Status Last Admin Dose Admin Acetaminophen (Tylenol) 650 mg Q4H PRN ORAL Mild Pain (Pain Scale 1-3) 12/12/19 14:30 01/11/20 14:29 Acetaminophen (Tylenol) 650 mg Q4H PRN ORAL fever (T>100.4) 12/12/19 14:30 01/11/20 14:29 Acetaminophen (Tylenol) 650 mg Q4H PRN RECTAL Mild Pain (Pain Scale 1-3) 12/12/19 14:30 01/11/20 14:29 Acetaminophen (Tylenol) 650 mg Q4H PRN RECTAL fever (T>100.4) 12/12/19 14:30 01/11/20 14:29 Albuterol/ Ipratropium (Albuterol/ Ipratropium) 3 ml Q4HRT HHN 12/12/19 15:00 12/17/19 14:59 12/15/19 07:22 Azithromycin 500 mg/Sodium Chloride 275 ml @ 275 mls/hr Q24H IV 12/13/19 15:00 12/20/19 14:59 12/14/19 16:22 Bisacodyl (Dulcolax) 10 mg DAILYPRN PRN RECTAL Constipation 12/12/19 14:30 01/11/20 14:29 Budesonide/ Formoterol Fumarate (Symbicort 160/ 4.5) 1 puff BID INH 12/13/19 10:00 01/12/20 09:59 12/14/19 18:50 Ceftriaxone Sodium 1 gm/ Sodium Chloride 55 ml @ 110 mls/hr Q24H IVPB 12/13/19 14:00 12/20/19 13:59 12/14/19 13:43 Dextrose (Dextrose 50%) 25 ml Q30M PRN IV Hypoglycemia 12/12/19 14:30 01/11/20 14:29 Dextrose (Dextrose 50%) 50 ml Q30M PRN IV Hypoglycemia 12/12/19 14:30 01/11/20 14:29 Dextrose/Sodium Chloride 1,000 ml @ 50 mls/hr Q20H IV 12/12/19 18:45 01/11/20 18:44 12/15/19 06:16 Docusate Sodium (Colace) 100 mg DAILY ORAL 12/13/19 09:30 01/12/20 09:29 12/15/19 09:05 Escitalopram Oxalate (Lexapro) 20 mg DAILY ORAL 12/13/19 09:30 01/12/20 09:29 12/15/19 08:56 Gabapentin (Neurontin) 300 mg BEDTIME ORAL 12/13/19 21:00 01/12/20 20:59 12/14/19 20:42 Heparin Sodium (Porcine) (Heparin 5000 units/ml) 5,000 units EVERY 12 HOURS SUBQ 12/12/19 21:00 01/11/20 20:59 12/15/19 08:59 Levothyroxine Sodium (Synthroid) 75 mcg ACBREAKFAST ORAL 12/14/19 06:30 01/13/20 06:29 12/15/19 06:19 Magnesium Hydroxide (Mom) 30 ml HSPRN PRN ORAL Constipation 12/12/19 14:30 01/11/20 14:29 Metronidazole 100 ml @ 100 mls/hr Q8HR IVPB 12/13/19 14:00 12/20/19 13:59 12/15/19 06:19 Mirtazapine (Remeron) 7.5 mg BEDTIME ORAL 12/13/19 21:00 01/12/20 20:59 12/14/19 20:42 Montelukast Sodium (Singulair) 10 mg DAILY ORAL 12/13/19 10:00 01/12/20 09:59 12/15/19 08:56 Nitroglycerin (Ntg) 0.4 mg Q5M PRN SL Prn Chest Pain 12/12/19 14:30 01/11/20 14:29 Ondansetron HCl (Zofran) 4 mg Q6H PRN IVP Nausea & Vomiting 12/12/19 14:30 01/11/20 14:29 Pantoprazole (Protonix) 40 mg DAILY ORAL 12/13/19 09:00 01/12/20 08:59 12/15/19 08:56 Polyethylene Glycol (Miralax) 17 gm DAILYPRN PRN ORAL Constipation 12/12/19 14:30 01/11/20 14:29 Prednisone (predniSONE) 20 mg DAILY ORAL 12/14/19 09:00 01/13/20 08:59 12/15/19 08:56 Sami Perez MD Dec 15, 2019 09:20
--- NOTE | 2019-12-15 09:30 | General Progress Note ---
Assessment/Plan Problem List: (1) Sepsis ICD Codes: A41.9 - Sepsis, unspecified organism SNOMED: 89229329 (2) HCAP (healthcare-associated pneumonia) ICD Codes: J18.9 - Pneumonia, unspecified organism SNOMED: 344056398, 405334902 (3) Hypothyroidism ICD Codes: E03.9 - Hypothyroidism, unspecified SNOMED: 97455243 (4) Depression ICD Codes: F32.9 - Major depressive disorder, single episode, unspecified SNOMED: 84558158 (5) Leukocytosis ICD Codes: D72.829 - Elevated white blood cell count, unspecified SNOMED: 508733166, 230370591 Qualifiers: Qualified Codes: D72.828 - Other elevated white blood cell count (6) Asthma exacerbation ICD Codes: J45.901 - Unspecified asthma with (acute) exacerbation SNOMED: 334063000 Qualifiers: Qualified Codes: J45.51 - Severe persistent asthma with (acute) exacerbation Status: stable Assessment/Plan: 89 yo F w PMH of Asthma and multiple asthma exacerbations over the past year, presents from [facility] for sob. Found to have sepsis secondary to pneumonia. #Sepsis secondary to pneumonia. #?right upper lobe mass #Asthma exacerbation #marked Leukocytosis Rocephin, Azithro, add flagyl for anaerobic coverage follow up cultures CT chest for ?rul mass on cxr pending pulmonary consult Dr. Perez Po steroids, neb treatments, LABA/ICS, montelukast monitor white count, could be induced by steroids in combination with sepsis speech evaluation PT/OT #hypothyroidism continue levothyroxine 75 TSH, 0.18, low, repeat TSH, order free T4 and total T3 may need to reduce dose of Synthroid # CKD, ?stage - ctm bmp - avoid nephrotoxic meds # Hyperkalemia - recheck after 2 L NS in the ED, 5.2-->5-->4.3 #Depression continue Lexapro VTE ppx: Heparin Gi ppx Code status: DNR PCP: Jeff Rodriguez principal technical writer: Kahlil Wang Disposition: Rehab center [facility] I spent 40 minutes on this case with >50% dedicated to care coordination and counseling. Code status was discussed at bedside with patient who states she wishes to be DNR DNI and has written legal documents reflecting her wishes. Subjective Date patient seen: Dec 15, 2019 ROS Limited/Unobtainable: No Constitutional: Denies: no symptoms, chills, diaphoresis, fever, malaise, weakness, other HEENT: Denies: no symptoms, eye pain, blurred vision, tearing, double vision, ear pain, ear discharge, nose pain, nose congestion, throat pain, throat swelling, mouth pain, mouth swelling, other Cardiovascular: Denies: no symptoms, chest pain, edema, irregular heart rate, lightheadedness, palpitations, syncope, other Respiratory: Reports: cough Gastrointestinal/Abdominal: Denies: no symptoms, abdomen distended, abdominal pain, black stools, tarry stools, blood in stool, constipated, diarrhea, difficulty swallowing, nausea, poor appetite, poor fluid intake, rectal bleeding , vomiting, other Genitourinary: Denies: no symptoms, burning, discharge, frequency, flank pain, hematuria, incontinence, pain, urgency, other Neurologic/Psychiatric: Denies: no symptoms, anxiety, depressed, emotional problems, headache, numbness, paresthesia, pre-existing deficit, seizure, tingling, tremors, weakness, other Endocrine: Denies: no symptoms, excessive sweating, flushing, intolerance to cold, intolerance to heat, increased hunger, increased thirst, increased urine, unexplained weight gain, unexplained weight loss, other Hematologic/Lymphatic: Denies: no symptoms, anemia, easy bleeding, easy bruising, other Allergies: Coded Allergies: ASPIRIN (Verified Allergy, Intermediate, 12/12/19) CODEINE (Verified Allergy, Intermediate, 12/12/19) EPINEPHRINE (Verified Allergy, Intermediate, 12/12/19) PENICILLINS (Verified Allergy, Unknown, 12/12/19) SULFA (SULFONAMIDE ANTIBIOTICS) (Verified Allergy, Unknown, 12/12/19) Subjective much better today. no acute events overnight. just complaining of periods of cough. wants to ambulate with PT. CT chest pending Objective Last 24 Hour Vital Signs Date Time Temp Pulse Resp B/P (MAP) Pulse Ox O2 Delivery O2 Flow Rate FiO2 12/15/19 07:32 98 Nasal Cannula 3.0 32 12/15/19 07:22 65 17 99 Nasal Cannula 3.0 32 67 16 98 12/15/19 04:00 68 12/15/19 04:00 Nasal Cannula 4.0 12/15/19 04:00 4.0 12/15/19 04:00 98.0 77 21 148/89 (108) 98 12/15/19 00:00 79 12/15/19 00:00 Nasal Cannula 4.0 12/15/19 00:00 79 18 99 Nasal Cannula 3.0 32 77 21 98 12/15/19 00:00 98.0 85 22 106/53 (70) 97 12/15/19 00:00 4.0 12/14/19 20:00 4.0 12/14/19 20:00 98.1 80 24 101/56 (71) 96 12/14/19 20:00 88 12/14/19 20:00 Nasal Cannula 4.0 12/14/19 18:55 98 Nasal Cannula 3.0 32 12/14/19 18:52 81 18 100 Nasal Cannula 3.0 32 78 21 98 12/14/19 16:00 85 12/14/19 16:00 98.1 78 23 133/88 (103) 96 12/14/19 16:00 Nasal Cannula 4.0 12/14/19 16:00 4.0 12/14/19 15:59 72 18 100 Nasal Cannula 4.0 36 69 22 100 12/14/19 12:37 74 20 100 Nasal Cannula 4.0 36 79 20 99 12/14/19 12:00 97.5 85 23 134/75 (94) 99 12/14/19 12:00 4.0 12/14/19 12:00 79 12/14/19 12:00 Nasal Cannula 4.0 Intake and Output 12/14/19 12/15/19 19:00 07:00 Intake Total 1330 ml 600 ml Output Total 900 ml 500 ml Balance 430 ml 100 ml Intake Oral 300 ml IV Total 1030 ml 600 ml Output Urine Total 900 ml 500 ml Laboratory Tests 12/15/19 04:00: White Blood Count 16.9H, Red Blood Count 3.19L, Hemoglobin 10.4L, Hematocrit 31.1L, Mean Corpuscular Volume 98, Mean Corpuscular Hemoglobin 32.6H, Mean Corpuscular Hemoglobin Concent 33.4, Red Cell Distribution Width 12.3, Platelet Count 278, Mean Platelet Volume 6.7, Neutrophils (%) (Auto) 61.7, Lymphocytes (% ) (Auto) 24.8, Monocytes (%) (Auto) 11.3H, Eosinophils (%) (Auto) 1.6, Basophils (%) (Auto) 0.6, Sodium Level 145, Potassium Level 4.3, Chloride Level 112H, Carbon Dioxide Level 24, Anion Gap 9, Blood Urea Nitrogen 26H, Creatinine 1.3, Estimat Glomerular Filtration Rate , Glucose Level 91, Calcium Level 9.0, Total Bilirubin 0.2, Aspartate Amino Transf (AST/SGOT) 17, Alanine Aminotransferase (ALT/SGPT) 28, Alkaline Phosphatase 88, Total Protein 6.0L, Albumin 2.6L, Globulin 3.4, Albumin/Globulin Ratio 0.8L Height (Feet): 5 Height (Inches): 3.00 Weight (Pounds): 164 Objective General Appearance: WD/WN, alert, no distress HEENT: atraumatic, anicteric, EOMI Neck: normal alignment, supple Respiratory/Chest: lungs clear, normal breath sounds Cardiovascular/Chest: normal peripheral pulses, normal rate, regular rhythm Abdomen: non tender, soft, no organomegaly Extremities: non-tender, no edema, no cyanosis Neurologic: tax auditor II-XII grossly normal, no motor/sensory deficits, oriented x 3 , responsive Musculoskeletal: atrophy Nash Davis M.D. Dec 15, 2019 09:30
[2019-12-15 12:00] VITALS: BP 104/58
[2019-12-15] MEDS: cefTRIAXone 1 GM in NS 55 ML IVPB SCH (14:39)
[2019-12-15] MEDS: Azithromycin 500 MG in NS 275 ML IV SCH (15:28)
[2019-12-15 16:00] VITALS: BP 108/56
[2019-12-15 20:00] VITALS: BP 130/78
[2019-12-15] MEDS ORDERED: Miralax 17gm pkt ORAL SCH (21:00)
[2019-12-16] VITALS: BP 143/74
[2019-12-16] MEDS: D5 1/2NS 1,000 ML IV SCH (02:18)
[2019-12-16] MEDS: Albuterol/Ipratropium 3ml neb HHN SCH ×3 (03:00→10:30)
[2019-12-16 04:00] VITALS: BP 130/60
[2019-12-16] MEDS ORDERED: NS 275ml ONE ×2 (07:55→14:57)
[2019-12-16] MEDS ORDERED: D5 1/2NS 1000ml IV ONE ×2 (07:55→14:57)
[2019-12-16] MEDS ORDERED: Tubing IV Secondary IV ONE (07:55)
[2019-12-16 08:00] VITALS: BP 103/46
[2019-12-16] MEDS: Montelukast 10mg tablet ORAL SCH (08:38)
[2019-12-16] MEDS: Heparin 5000 units/ml inj SUBQ SCH (08:40)
[2019-12-16] MEDS ORDERED: Miralax 17gm pkt ORAL SCH (09:00)
--- NOTE | 2019-12-16 09:36 | Diagnostic Imaging Report ---
CLINICAL INDICATION:Right upper lobe nodule, abdominal and pelvic abscess TECHNIQUE: Patient ingested enteric contrast. No IV contrast utilized. Spiral acquisitions obtained through the chest, abdomen, and pelvis. Multiplanar reconstructions were generated. Total dose length product 1352 mGycm. CTDIvol(s) 18 mGy. Radiation dose was minimized using automated exposure control COMPARISON: none FINDINGS Chest: Triangular subpleural opacity is seen in the periphery of the inferior right upper lobe. This corresponds to findings seen on recent chest radiograph. Some atelectasis and/or scarring is seen in the superior segment right lower lobe. Mild bronchiectasis and bronchial wall thickening is seen in the inferior lower lobes bilaterally. Dependent atelectatic changes are seen in the posterior lower lobes bilaterally no effusions demonstrated. Some areas of groundglass opacity are seen in the left upper lobe periphery. The heart size is upper limits of normal. No pericardial effusion. No mediastinal or hilar mass or adenopathy demonstrated. No axillary or chest wall mass or adenopathy. The bones demonstrate degenerative spondylosis changes. There is mild thoracolumbar scoliotic deformity demonstrated. Abdomen pelvis: There is mild distention of the rectum by gas. No evidence of diverticulosis or diverticulitis. The appendix is not definitely visualized, but no findings to suggest acute appendicitis are evident. No small bowel distention or small bowel wall thickening. No free or loculated intraperitoneal gas or fluid is evident. There is a small sliding-type hiatal hernia. The stomach, duodenum are unremarkable. Lack of IV contrast limits assessment of the solid organs. The liver demonstrates a 1 cm cyst near the tip of the right hepatic lobe. The gallbladder, bile ducts, pancreas are all unremarkable. The spleen demonstrates multiple cysts. The the adrenals are unremarkable. The kidneys are atrophic bilaterally, without focal abnormality. No renal or ureteral calculi, hydronephrosis, or hydroureter demonstrated. No pelvic mass or adenopathy. The uterus is absent. The bones demonstrate degenerative spondylosis changes. IMPRESSION: Inferior right upper lobe triangular subpleural opacity, corresponding to findings seen on recent chest radiograph. This most likely represents an area of atelectasis or scarring, could also represent some focal consolidation. Mass lesion less likely, not completely excludable, and follow-up radiographs are recommended Other pulmonary parenchymal findings as described, including right lower lobe atelectasis and/or scarring, bilateral lower lobe bronchiectasis, bilateral dependent atelectatic changes. Left upper lobe peripheral groundglass opacities could represent focal areas of acute inflammation versus chronic postinflammatory changes No definite acute abdominal process Small sliding-type hiatal hernia Atrophic kidneys Other findings as noted, including scoliotic deformity, degenerative spondylosis, prior hysterectomy, liver and splenic cysts The CT scanner at [facility] is accredited by the [employer] and the scans are performed using protocols designed to limit radiation exposure to as low as reasonably achievable to attain images of sufficient resolution adequate for diagnostic evaluation.
[2019-12-16] MEDS ORDERED: guaiFENesin 100mg/5ml Liq ud ORAL PRN (10:45)
[2019-12-16 10:57] LABS: BASOPHILS % (AUTO) 0.4 % (0.0-2.0); EOSINOPHILS % (AUTO) 3.2 % (0.0-3.0); HEMATOCRIT 33.8 % (37.0-47.0); HEMOGLOBIN 11.1 G/DL (12.0-16.0); LYMPHOCYTES % (AUTO) 25.9 % (20.0-45.0); MEAN CORPUSCULAR VOLUME 98 FL (80-99); MONOCYTES % (AUTO) 11.1 % (1.0-10.0); NEUTROPHILS % (AUTO) 59.5 % (45.0-75.0); PLATELET COUNT 273 K/UL (150-450); RED BLOOD COUNT 3.44 M/UL (4.20-5.40); RED CELL DISTRIBUTION WIDTH 12.4 % (11.6-14.8); WHITE BLOOD COUNT 17.4 K/UL (4.8-10.8)
[2019-12-16] MEDS ORDERED: Ipratropium 0.02% Inh Soln 2.5ml UD HHN PRN (11:00)
[2019-12-16] MEDS ORDERED: IPRATROPIU0.2 MG/1 M HHN (11:12)
[2019-12-16] MEDS ORDERED: CEFTRIAXON1 GM/50 ML IV (11:12)
[2019-12-16] MEDS ORDERED: SYNTHROID50 MCG ORAL (11:12)
[2019-12-16] MEDS ORDERED: PREDNISONE20 MG ORAL (11:12)
[2019-12-16] MEDS ORDERED: FLAGYL500 MG ORAL (11:12)
[2019-12-16] MEDS ORDERED: TESSALON PERLE100 M2 ORAL (11:12)
--- NOTE | 2019-12-16 11:22 | Discharge Summary ---
Discharge Summary Hospital Course Date of Admission Dec 12, 2019 at 14:07 Date of Discharge 12/16/2019 Admitting Diagnosis dyspnea, respiratory distress, sepsis secondary to pneumonia HPI Ekaterina Wright is a 89 year old female who was admitted on Dec 12, 2019 at 14 :07 for Dyspnea,Respiratory Distress Consultations pulmonary: Chris infectious disease: [place] Procedures CT chest abdomen pelvis Hospital Course 89 yo F w PMH of Asthma and multiple asthma exacerbations over the past year, presents from [facility] for sob. Found to have sepsis secondary to pneumonia. #Sepsis secondary to pneumonia. #right upper lobe opacity, CT chest reviewed #Asthma exacerbation #marked Leukocytosis, resolving Rocephin, Azithro, add flagyl for anaerobic coverage. Received 5 days of Azithromycin, will discharge on PO Flagyl and IV Rocephin for 5 more days. follow up cultures, negative to date CT chest for ?rul mass: Inferior right upper lobe triangular subpleural opacity, corresponding to findings seen on recent chest radiograph. This most likely represents an area of atelectasis or scarring, could also represent some focal consolidation. Mass lesion less likely, not completely excludable, and follow-up radiographs are recommended Other pulmonary parenchymal findings as described, including right lower lobe atelectasis and/or scarring, bilateral lower lobe bronchiectasis, bilateral dependent atelectatic changes. Left upper lobe peripheral groundglass opacities could represent focal areas of acute inflammation versus chronic postinflammatory changes Markell Mckeon pulmonary consult Dr. Perez Po prednisone 20 mg x 5 days neb treatment with ipratropium (not tolerating albuterol) , LABA/ICS, montelukast monitor white count, could be induced by steroids in combination with sepsis, resolving speech evaluation PT/OT #hypothyroidism continue levothyroxine 75 TSH, 0.18, low, repeat TSH, free T4 wnl and total T3 pending reduce dose of Synthroid to 50 mcq daily # CKD, ?stage - ctm bmp - avoid nephrotoxic meds # Hyperkalemia - recheck after 2 L NS in the ED, 5.2-->5-->4.3 #Depression continue Lexapro VTE ppx: Heparin Gi ppx Code status: DNR PCP: Jeff Rodriguez exhibits coordinator: Kahlil Wang Disposition: Rehab center [facility] I spent 40 minutes on this case with >50% dedicated to care coordination and counseling. Code status was discussed at bedside with patient who states she wishes to be DNR DNI and has written legal documents reflecting her wishes. Seen and examined with daughter at bedside. In no distress, frequent coughs. Minimal scattered wheezing in the lungs, otherwise clear. Plan of care discussed with daughter at bedside and on the phone with the other daughter Miesha. Discharge Medications New Medications: Ceftriaxone Na/Dextrose,Iso (Ceftriaxone 1 Gm Piggyback) 1 Gm/50 Ml Froz.piggy 1 GM IV DAILY for 5 Days, #5 BAG Metronidazole* (Flagyl*) 500 Mg Tablet 500 MG ORAL EVERY 8 HOURS for 5 Days, #15 TAB Benzonatate (Tessalon Perle) 100 Mg Capsule 100 MG ORAL THREE TIMES A DAY for 10 Days, #30 CAP Ipratropium [place] 0.5MG/2.5ML (Ipratropium [place] 0.5MG/2.5ML) 0.2 Mg/1 Ml Solution 500 MCG HHN Q4H PRN for 10 Days, #1 EA Levothyroxine Sodium (Synthroid) 50 Mcg Tablet 50 MCG ORAL ACBREAKFAST for 10 Days, #10 TAB Take in the morning on an empty stomach, at least 30 minutes beforefood. Prednisone* (Prednisone*) 20 Mg Tablet 20 MG ORAL DAILY for 5 Days, #5 TAB Continued Medications: Budesonide/Formoterol Fumarate (Symbicort 160-4.5 Mcg Inhaler) 10.2 Gm Hfa.aer.ad 1 PUFF IH for unk, #1 INH 0 Refills Calcium Carbonate (Tums) 200 Mg Tab.chew 200 MG PO PRN for gas, TAB Docusate Sodium* (Colace*) 100 Mg Capsule 100 MG ORAL DAILY for unk, CAP Escitalopram Oxalate* (Lexapro*) 20 Mg Tablet 20 MG ORAL DAILY for unk, TAB Gabapentin (Neurontin) 300 Mg Capsule 300 MG ORAL BEDTIME for unk, #7 CAP 0 Refills Guaifenesin (Guaifenesin) 400 Mg Tablet 600 MG PO BID for cough, TAB Hydrocodone Bit/Acetaminophen 5-325* ([place] 5-325*) 1 Each Tablet 1 TAB ORAL Q4H PRN for For Pain, #10 TAB 0 Refills Melatonin (Melatonin) 5 Mg Tab.rapdis 5 MG ORAL BEDTIME PRN for Insomnia, TAB Mirtazapine* (Remeron*) 15 Mg Tablet 7.5 MG ORAL BEDTIME for unk, TAB Montelukast Sodium* (Singulair*) 10 Mg Tablet 10 MG ORAL DAILY for unk, TAB Omeprazole Magnesium (Prilosec Otc) 20 Mg Tablet.dr 20 MG ORAL DAILY for unk, TAB Discontinued Medications: Ipratropium/Albuterol Sulfate (DuoNeb 0.5-3(2.5)mg/3ml) 3 Ml Ampul.neb 3 ML HHN Q6HR for asthma, EA Levothyroxine Sodium* (Levothyroxine Sodium*) 75 Mcg Tablet 75 MCG ORAL DAILY for unk, TAB Take in the morning on an empty stomach, at least 30 minutes before food. Discharge Condition Upon Discharge: stable Discharge Disposition Patient was discharged to [facility], [facility] Discharge Diagnoses: (1) Sepsis (2) HCAP (healthcare-associated pneumonia) (3) Asthma exacerbation (4) Depression (5) Hypothyroidism Nash Davis M.D. Dec 16, 2019 11:22
[2019-12-16] MEDS ORDERED: Benzonatate 100mg Perles ORAL SCH (11:30)
[2019-12-16 12:00] VITALS: BP 111/57
[2019-12-16] MEDS: cefTRIAXone 1 GM in NS 55 ML IVPB SCH (14:00)
--- NOTE | 2019-12-16 16:17 | Pulmonology Progress Note ---
Assessment/Plan Assessment/Plan IMPRESSION: 1. Asthma exacerbation. 2. Marked leukocytosis. 3. RUL infiltrate; CT reviewed DISCUSSION: Agree with antibiotics CT chest reviewed; has scarring Continue prednisone, O2 and HHN aSmi Perez M.D. Subjective Interval Events: Remains on O2; feeling better Constitutional: Reports: no symptoms HEENT: Repors: no symptoms Respiratory: Reports: no symptoms Cardiovascular: Reports: no symptoms Gastrointestinal/Abdominal: Reports: no symptoms Allergies: Coded Allergies: ASPIRIN (Verified Allergy, Intermediate, 12/12/19) CODEINE (Verified Allergy, Intermediate, 12/12/19) EPINEPHRINE (Verified Allergy, Intermediate, 12/12/19) PENICILLINS (Verified Allergy, Unknown, 12/12/19) SULFA (SULFONAMIDE ANTIBIOTICS) (Verified Allergy, Unknown, 12/12/19) Objective Last 24 Hour Vital Signs Date Time Temp Pulse Resp B/P (MAP) Pulse Ox O2 Delivery O2 Flow Rate FiO2 12/16/19 12:00 Nasal Cannula 4.0 12/16/19 12:00 99.3 93 17 111/57 (75) 97 12/16/19 11:42 82 12/16/19 08:00 Nasal Cannula 4.0 12/16/19 08:00 99.9 75 17 103/46 (65) 94 12/16/19 07:57 77 12/16/19 07:18 95 Nasal Cannula 3.0 32 12/16/19 07:17 79 22 95 Nasal Cannula 3.0 32 12/16/19 04:00 97.2 80 24 130/60 (83) 96 12/16/19 04:00 Nasal Cannula 4.0 12/16/19 03:41 73 12/16/19 00:00 97.3 95 24 143/74 (97) 96 12/16/19 00:00 Nasal Cannula 4.0 12/15/19 23:35 95 12/15/19 22:55 75 18 99 Nasal Cannula 4.0 36 73 18 97 12/15/19 20:04 72 18 98 Nasal Cannula 3.0 32 68 18 96 12/15/19 20:04 96 Nasal Cannula 3.0 32 12/15/19 20:00 Nasal Cannula 4.0 12/15/19 20:00 98.4 83 24 130/78 (95) 97 12/15/19 19:07 78 Intake and Output 12/15/19 12/16/19 19:00 07:00 Intake Total 955 ml 819.16 ml Balance 955 ml 819.16 ml Intake Oral 450 ml 120 ml IV Total 505 ml 699.16 ml # Voids 1 3 General Appearance: no acute distress HEENT: normocephalic Respiratory/Chest: chest wall non-tender Cardiovascular: normal peripheral pulses, normal rate Abdomen: normal bowel sounds Laboratory Tests 12/16/19 04:30: White Blood Count 17.4H, Red Blood Count 3.44L, Hemoglobin 11.1L, Hematocrit 33.8L, Mean Corpuscular Volume 98, Mean Corpuscular Hemoglobin 32.4H, Mean Corpuscular Hemoglobin Concent 32.9, Red Cell Distribution Width 12.4, Platelet Count 273, Mean Platelet Volume 5.9L, Neutrophils (%) (Auto) 59.5, Lymphocytes ( %) (Auto) 25.9, Monocytes (%) (Auto) 11.1H, Eosinophils (%) (Auto) 3.2H, Basophils (%) (Auto) 0.4, Thyroid Stimulating Hormone (TSH) 0.108L, Free Thyroxine 1.41, Triiodothyonine (T3) [Pending] Sami Perez MD Dec 16, 2019 16:17
== END 2019-12-16 14:28 | DRG 871 ==
LOC: EDBD 12:16 → EMR 12:35 → 2W 14:07 → EDBEDREQ 14:09 → EDBEDREQSVC 14:12 → EDBEDREQ 14:12 → 2W 12-15 16:02
DX: A41.9 Sepsis, unspecified organism (principal); J18.9 Pneumonia, unspecified organism; J45.901 Unspecified asthma with (acute) exacerbation; N18.9 Chronic kidney disease, unspecified; Z88.6 Allergy status to analgesic agent; Z88.0 Allergy status to penicillin; Z88.2 Allergy status to sulfonamides; Z88.8 Allergy status to other drugs, medicaments and biological substances; E03.9 Hypothyroidism, unspecified; Z66 Do not resuscitate; R09.02 Hypoxemia; F32.9 Major depressive disorder, single episode, unspecified
CPT/HCPCS: 36415; 36600; 71045; 71250; 74176; 80048; 80053; 81003; 82164; 82550; 82553; 82803; 83605; 83690; 83880; 84439; 84443; 84484; 85007; 85025; 85379; 86738; 87040; 87081; 92610; 93005; 93306; 94640; 94660; 96365; 96366; 96368; 99291; J7030; J7620